=== PATIENT | male | born 1935 | race Caucasian/White ===

== ENCOUNTER 2016-07-16 19:40 | Inpatient (IN) | payer OTHER, MEDICARE ==
[~2016-07-16] VITALS: Ht 170.2 cm; Wt 89.8 kg
--- NOTE | 2016-07-16 19:47 | ED AMS/SEIZURE/WEAK/DIZZY ---
History of Present Illness General Chief Complaint: Fever Stated Complaint: FEVER, ALTERED MENTAL STATUS Source: patient Exam Limitations: no limitations Vital Signs & Intake/Output Vital Signs & Intake/Output Vital Signs Date Time Temp Pulse Resp B/P Pulse O2 O2 Flow FiO2 Ox Delivery Rate 07/16 2200 98 Room Air 07/16 2128 101.1 07/16 2041 101.1 68 20 147/68 94 Room Air 07/16 1955 100.5 79 18 138/68 96 Room Air Allergies Coded Allergies: No Known Allergies (07/16/16) Reconcile Medications Aspirin (Aspirin*) 81 MG TAB.CHEW 325 MG PO D HEART (Reported) Cholecalciferol (Vitamin D3) (Vitamin D) 1,000 UNIT TABLET 1 TAB PO BID SUPPLIMENT (Reported) Fish Oil/Borage/Flax/Om3,6,9#1 ([place] 3-6-9 1,200 MG Softgel) 1,200 MG CAPSULE 1,000 MG PO D SUPPLIMENMT (Reported) Gabapentin 100 MG CAPSULE 300 MG PO TID NEURO (Reported) Hydralazine HCl 10 MG TABLET 25 MG PO TID HTN (Reported) Lisinopril 10 MG TABLET 10 MG PO D HTN (Reported) Multivit-Min/FA/Lycopen/Lutein (Centrum Silver Tablet) 0.4 MG-300 MCG-250 MCG TABLET 1 TAB PO D SUPPLIMENT (Reported) Niacin (Niaspan) 1,000 MG TAB.ER.24H 1,000 MG PO D SUPPLIMENT (Reported) Primidone (Mysoline) 50 MG TABLET 50 MG PO 4 U (Reported) Simvastatin (Simvastatin*) 5 MG TABLET 20 MG PO D CHOL (Reported) Sitagliptin Phos/Metformin HCl (Janumet 50-500 MG Tablet) 50 MG-500 MG TABLET 50-500 MG PO BID DM (Reported) Tamsulosin HCl (Flomax) 0.4 MG CAP.ER.24H 0.4 MG PO D PROSTATE (Reported) Triage Nurses Notes Reviewed? yes Onset: Gradual Duration: day(s): Timing: recent history Injury Environment: home Severity: moderate Modifying Factors: Improves With: rest. Worsens With: other (pain with urination). Associated Symptoms: fever HPI: 80 yo gentleman from home, h/o cad, s/p cabg 1999 presents with fever to 102, decreased oral intake, increased fatigue for the past 1-2 days. The medics report that his family reported increasing confusion and fatigue. He notes slight discomfort when voiding as well as mild left sided abdominal pain. He notes no cough, phlegm, diarrhea, chills, dyspnea. Past History Travel History Traveled to [place] past 21 day No Medical History Any Pertinent Medical History? see below for history Cardiovascular: cad, htn Surgical History Surgical History: CABG Family History Hx Contributory? No Review of Systems Review of Systems Constitutional: Reports: no symptoms. EENTM: Reports: no symptoms. Respiratory: Reports: no symptoms. Cardiovascular: Reports: no symptoms. GI: Reports: no symptoms. Genitourinary: Reports: no symptoms. Musculoskeletal: Reports: no symptoms. Skin: Reports: no symptoms. Neurological/Psychological: Reports: no symptoms. Hematologic/Endocrine: Reports: no symptoms. Immunologic/Allergic: Reports: no symptoms. All Other Systems: Reviewed and Negative Physical Exam Physical Exam General Appearance: well developed/nourished, mild distress Head: atraumatic, normal appearance Eyes: Bilateral: normal appearance, PERRL, EOMI. Ears, Nose, Throat: normal pharynx, dry mucosa Neck: normal inspection, supple, full range of motion Respiratory: normal breath sounds, chest non-tender, no respiratory distress, quiet respiration, lungs clear Cardiovascular: regular rate/rhythm Gastrointestinal: normal bowel sounds, soft, left sided tenderness to palpation, no rebound, no guarding. mild suprapubic tenderness to palpation Rectal: normal rectal tone, heme negative stool, exquisitely tender and warm prostate to palpation. Back: normal inspection Extremities: normal range of motion Neurologic/Psych: no motor/sensory deficits, awake, alert, oriented x 3, calm, alert, answers all questions lucidly Skin: intact, normal color, warm/dry Core Measures ACS in differential dx? No CVA/TIA Diagnosis: No Severe Sepsis Present: No Septic Shock Present: No Progress Differential Diagnosis: uti, prostatitis, gastroenteritis, diverticulitis vs other. Plan of Care: Orders Procedure Date/time Status Nothing by Mouth 07/17 B Active Saline Lock 07/16 2157 Active Misc Message 07/16 2157 Active ED Holding Orders 07/16 2157 Active Vital Signs 07/16 2157 Active Code Status 07/16 2157 Active Admit to inpatient 07/16 2156 Active RAPID VIRAL INFLUENZA A 07/16 2037 Complete BLOOD CULTURE 07/16 1950 Active LACTIC ACID 07/16 1950 Complete CULTURE,URINE 07/16 1948 Active BLOOD CULTURE 07/16 1948 Active URINALYSIS 07/16 1948 Complete TROPONIN LEVEL 07/16 1948 Complete LIPASE 07/16 1948 Complete HEPATIC FUNCTION PANEL 07/16 1948 Complete CBC WITHOUT DIFFERENTIAL 07/16 1948 Complete BASIC METABOLIC PANEL 07/16 1948 Complete AMYLASE 07/16 1948 Complete EKG 07/16 1943 Active Laboratory Tests 07/16/162114: Urine Color YEL, Urine Clarity CLEAR, Urine pH 6.0, Ur Specific [place] >= 1.030 , Urine Protein 100 H, Urine Ketones NEG, Urine Nitrite NEG, Urine Bilirubin NEG, Urine Urobilinogen 0.2, Ur Leukocyte Esterase NEG, Ur Microscopic SEDIMENT EXAMINED, Urine RBC 25-50 H, Urine WBC 1-3 H, Ur Epithelial Cells FEW, Urine Hemoglobin MOD H, Urine Glucose NEG 07/16/161954: Lactic Acid 1.5 07/16/161954: Anion Gap 12, Estimated GFR > 60, BUN/Creatinine Ratio 23.8, Glucose 194 H, Calcium 9.0, Total Bilirubin 0.9, Direct Bilirubin 0.5 H, AST 23, ALT 37, Alkaline Phosphatase 87, Troponin I 0.01, Total Protein 7.4, Albumin 3.9, Amylase 42, Lipase 70, CBC w Diff NO MAN DIFF REQ, RBC 4.05 L, MCV 95.1 H, MCH 32.3 H, RDW 13.3, MPV 8.3, Gran % 82.0 H, Lymphocytes % 8.6 L, Monocytes % 9.2, Eosinophils % 0.1, Basophils % 0.1, Absolute Granulocytes 13.3 H, Absolute Lymphocytes 1.4, Absolute Monocytes 1.5 H, Absolute Eosinophils 0, Absolute Basophils 0, PUBS MCHC 34.0 Microbiology 07/16 2115 URINE ROUT: Urine Culture - RECD 07/16 2001 BLOOD: Blood Culture - RECD 07/16 1955 BLOOD: Blood Culture - RECD Diagnostic Imaging: Viewed by Me: Radiology Read, CT Scan. Discussed w/RAD: Radiology Read, CT Scan. Radiology Impression: abd/pelvic ct.... no acute process. CXR Impression: hypoinflation... full report below. Initial ED EKG: normal axis, normal intervals, normal p-waves, normal QRS complex, normal sinus rhythm, q waves III. no old to compare, no acute changes Comments: PATIENT: EMILY SCHAFFER SR PRESENT AGE: 80 PATIENT ACCOUNT NO: [id number] : 33 LOCATION: [facility] ORDERING PHYSICIAN: DANIEL LEON MD SERVICE DATE: 07/16/16 EXAM TYPE: CAT - CT ABD & PELVIS W/O IV CONTRAS EXAMINATION: CT ABDOMEN AND PELVIS WITHOUT CONTRAST CLINICAL INFORMATION: Left-sided abdominal pain and fever. COMPARISON: None. TECHNIQUE: Multidetector volumetric imaging was performed from the superior aspect of the liver through the pubic symphysis. Sagittal and coronal reformatted images were obtained on the technologist's workstation. DLP: 919 mGy-cm. FINDINGS: Limited evaluation of the solid abdominal viscera in the absence of intravenous contrast. LUNG BASES: The visualized lung bases are unremarkable. LIVER, GALLBLADDER, AND BILIARY TREE: The liver is normal in size, shape, and attenuation. No contour deforming hepatic lesion or biliary ductal dilatation is present. The gallbladder is unremarkable with no evidence of radiopaque gallstones, gallbladder wall thickening, or obvious pericholecystic inflammatory changes. PANCREAS: Unremarkable. SPLEEN: Unremarkable. ADRENAL GLANDS: Unremarkable. KIDNEYS AND URETERS: Evaluation of the bilateral kidneys and renal collecting systems is notable for nephrolithiasis of the bilateral kidneys. There is a punctate 1-2 mm nonobstructing stone within the lower pole of the right kidney. There are 3 mm nonobstructing stones within the mid and lower poles of the left kidney. No ureteral stones are identified and there is no appreciable hydroureteronephrosis of either kidney or renal collecting system. BLADDER: Unremarkable. GASTROINTESTINAL TRACT: Normal anatomic orientation of the stomach relative to the duodenum. Normal caliber of abdominal and pelvic bowel loops, without evidence of obstruction or ileus. No circumferential bowel wall thickening with surrounding inflammatory changes to suggest an underlying infectious or inflammatory enterocolitis. Normal-appearing appendix, with the tip of the appendix identified within the left hemipelvis. No organizing intra-abdominal fluid collections or free intraperitoneal air. Incidental note is made of a small hiatal hernia. ABDOMINAL WALL: Small fat-containing umbilical hernia. Small fat-containing bilateral inguinal hernias. LYMPH NODES: No significant abdominal or pelvic adenopathy. VASCULAR: Atherosclerosis of the abdominal aorta and its branching vessels. Normal course and caliber of the abdominal aorta and its branching vessels, without aneurysmal dilatation. Limited evaluation for vascular patency in the absence of intravenous contrast. PELVIC VISCERA: Unremarkable. OSSEOUS STRUCTURES: No acute osseous abnormality. [id number] degenerative changes of the imaged thoracolumbar spine. IMPRESSION: 1. Nephrolithiasis of the bilateral kidneys. No ureteral or bladder stones and no hydroureteronephrosis of either kidney or renal collecting system. 2. Normal-appearing appendix, with the tip of the appendix identified within the left hemipelvis. DICTATED BY: SAUNDRA ARAGON MD DATE/TIME DICTATED:07/16/162026 CLINICAL FIELD SPECIALIST:ADAMARIS DATE/TIME TRANSCRIBED:07/16/162026 CONFIDENTIAL, DO NOT COPY WITHOUT APPROPRIATE AUTHORIZATION. <Electronically signed in Other Vendor System> SIGNED BY: SAUNDRA ARAGON MD 07/16/162050 PATIENT: EMILY SCHAFFER SR PRESENT AGE: 80 PATIENT ACCOUNT NO: [id number] : 33 LOCATION: [facility] ORDERING PHYSICIAN: DANIEL LEON MD SERVICE DATE: 07/16/16 EXAM TYPE: RAD - XRY-PORTABLE CHEST XRAY EXAMINATION: XR PORTABLE CHEST CLINICAL INFORMATION: Fever. COMPARISON: None. TECHNIQUE: Portable view of the chest was obtained. FINDINGS: Single AP view of the chest demonstrates pulmonary hypoinflation. Hypoinflation and patient body habitus limit evaluation of the bilateral lungs. Nevertheless, there is no focal airspace consolidation and there are no pleural effusions or pneumothoraces. There are median sternotomy wires and evidence of prior CABG. Soft tissues appear unremarkable. No acute osseous abnormality. IMPRESSION: Pulmonary hypoinflation. Otherwise, no acute pulmonary process. DICTATED BY: SAUNDRA ARAGON MD DATE/TIME DICTATED:07/16/162046 CLINICAL FIELD SPECIALIST:HALL DATE/TIME TRANSCRIBED:07/16/162046 CONFIDENTIAL, DO NOT COPY WITHOUT APPROPRIATE AUTHORIZATION. <Electronically signed in Other Vendor System> SIGNED BY: SAUNDRA ARAGON MD 07/16/162055 Departure Departure Disposition: STILL A PATIENT Condition: Stable Clinical Impression Primary Impression: Prostatitis Secondary Impressions: Sepsis, Weakness Referrals: NEELA VALENTE MD (PCP/Family) Referred to [facility] as new patient No Departure Forms: Customer Survey General Discharge Information Admission Note Spoke With: LENA HANSON MD Documentation of Exam: Documentation of any treatments & extenuating circumstances including Concerns Regarding Discharge (functional status, medication knowledge or non-compliance, living conditions, etc.) that warrant an admission rather than observation: pt with weakness, decreased oral intake, who meets criteria for sepsis... most likely etiology is prostatitis given his exquisitely tender prostate to palpation. pt merits iv fluids, iv abx, and then mobilization with pt/ot. may require short term rehab.
[2016-07-16] MEDS ORDERED: GABAPENTIN100 M2 PO (19:57)
[2016-07-16] MEDS ORDERED: LISINOPRIL10 M1 PO (19:58)
[2016-07-16] MEDS ORDERED: FLOMAX0.4 M1 PO (19:59)
[2016-07-16] MEDS ORDERED: NIASPAN1000 M1 PO (20:01)
[2016-07-16] MEDS ORDERED: SIMVASTATIN5 M2 PO (20:02)
[2016-07-16] MEDS ORDERED: MYSOLINE50 M1 PO (20:04)
[2016-07-16] MEDS ORDERED: HYDRALAZINE HCL10 M1 PO (20:04)
[2016-07-16] MEDS ORDERED: JANUMET 50-5001 EACH PO (20:06)
[2016-07-16] MEDS ORDERED: ASPIRIN81 M4 PO (20:06)
[2016-07-16] MEDS ORDERED: VITAMIN D1000 UNIT PO (20:07)
[2016-07-16] MEDS ORDERED: OMEGA 3-6-9 11200 MG PO (20:08)
[2016-07-16] MEDS ORDERED: CENTRUM SILVER1 EAC3 PO (20:09)
[2016-07-16 20:14] LABS: ABSOLUTE BASOPHIL COUNT 0 /CUMM (0.0-0.2); ABSOLUTE EOSINOPHIL COUNT 0 /CUMM (0.0-0.7); ABSOLUTE GRANULOCYTE CT 13.3 /CUMM (1.4-6.5); ABSOLUTE LYMPH COUNT 1.4 /CUMM (1.2-3.4); ABSOLUTE MONOCYTE COUNT 1.5 /CUMM (0.10-0.60); BASOPHIL % 0.1 % (0.0-2.0); EOSINOPHIL % 0.1 % (0-5); HEMATOCRIT 38.5 % (42-52); MEAN CORPUSCULAR HGB 32.3 PG (27.0-31.0); MEAN CORPUSCULAR VOLUME 95.1 FL (80.0-94.0); MEAN PLATELET VOLUME 8.3 FL (7.4-10.4); PLATELET COUNT 158 /CUMM (130-400); RBC DISTRIBUTION WIDTH 13.3 % (11.5-14.5); RED BLOOD CELL CT 4.05 /CUMM (4.70-6.10); WHITE BLOOD CELL COUNT 16.3 /CUMM (4.8-10.8)
--- NOTE | 2016-07-16 20:51 | CT SCAN REPORT ---
EXAMINATION: CT ABDOMEN AND PELVIS WITHOUT CONTRAST CLINICAL INFORMATION: Left-sided abdominal pain and fever. COMPARISON: None. TECHNIQUE: Multidetector volumetric imaging was performed from the superior aspect of the liver through the pubic symphysis. Sagittal and coronal reformatted images were obtained on the technologist's workstation. DLP: 919 mGy-cm. FINDINGS: Limited evaluation of the solid abdominal viscera in the absence of intravenous contrast. LUNG BASES: The visualized lung bases are unremarkable. LIVER, GALLBLADDER, AND BILIARY TREE: The liver is normal in size, shape, and attenuation. No contour deforming hepatic lesion or biliary ductal dilatation is present. The gallbladder is unremarkable with no evidence of radiopaque gallstones, gallbladder wall thickening, or obvious pericholecystic inflammatory changes. PANCREAS: Unremarkable. SPLEEN: Unremarkable. ADRENAL GLANDS: Unremarkable. KIDNEYS AND URETERS: Evaluation of the bilateral kidneys and renal collecting systems is notable for nephrolithiasis of the bilateral kidneys. There is a punctate 1-2 mm nonobstructing stone within the lower pole of the right kidney. There are 3 mm nonobstructing stones within the mid and lower poles of the left kidney. No ureteral stones are identified and there is no appreciable hydroureteronephrosis of either kidney or renal collecting system. BLADDER: Unremarkable. GASTROINTESTINAL TRACT: Normal anatomic orientation of the stomach relative to the duodenum. Normal caliber of abdominal and pelvic bowel loops, without evidence of obstruction or ileus. No circumferential bowel wall thickening with surrounding inflammatory changes to suggest an underlying infectious or inflammatory enterocolitis. Normal-appearing appendix, with the tip of the appendix identified within the left hemipelvis. No organizing intra-abdominal fluid collections or free intraperitoneal air. Incidental note is made of a small hiatal hernia. ABDOMINAL WALL: Small fat-containing umbilical hernia. Small fat-containing bilateral inguinal hernias. LYMPH NODES: No significant abdominal or pelvic adenopathy. VASCULAR: Atherosclerosis of the abdominal aorta and its branching vessels. Normal course and caliber of the abdominal aorta and its branching vessels, without aneurysmal dilatation. Limited evaluation for vascular patency in the absence of intravenous contrast. PELVIC VISCERA: Unremarkable. OSSEOUS STRUCTURES: No acute osseous abnormality. [id number] degenerative changes of the imaged thoracolumbar spine. IMPRESSION: 1. Nephrolithiasis of the bilateral kidneys. No ureteral or bladder stones and no hydroureteronephrosis of either kidney or renal collecting system. 2. Normal-appearing appendix, with the tip of the appendix identified within the left hemipelvis.
--- NOTE | 2016-07-16 20:56 | RADIOLOGY REPORT ---
EXAMINATION: XR PORTABLE CHEST CLINICAL INFORMATION: Fever. COMPARISON: None. TECHNIQUE: Portable view of the chest was obtained. FINDINGS: Single AP view of the chest demonstrates pulmonary hypoinflation. Hypoinflation and patient body habitus limit evaluation of the bilateral lungs. Nevertheless, there is no focal airspace consolidation and there are no pleural effusions or pneumothoraces. There are median sternotomy wires and evidence of prior CABG. Soft tissues appear unremarkable. No acute osseous abnormality. IMPRESSION: Pulmonary hypoinflation. Otherwise, no acute pulmonary process.
[2016-07-16 23:40] VITALS: BP 133/52
--- NOTE | 2016-07-16 23:44 | History & Physical ---
ERICA LYNN,[facility] 07/16/16 5130: General Information and HPI MD Statement: I have seen and personally examined EMILY SCHAFFER Adam SR and documented this H&P. The patient is a 80 year old M who presented with a patient stated chief complaint of [fever, AMS and weakness]. Source of Information: patient, family Exam Limitations: no limitations History of Present Illness: 80/M with PMH of 5 times CABG, spinal stenosis, BPH, HTN, T2DM, GERD, kidney stones who presented to the ED complaining of fever, altered mental status, and generalize weakness for 1 day Since yesterday patient was spiking fever, according to his son highest temperature at home was 103.2. Patient had an AMS where he was seeing a school bus in their backyard. He also had a poor appetite and generalized weakness where his son needed to support him while walking him from the car to the house. Patient's son reported that 2 years ago patient had exact same symptom after which she developed sepsis and stayed in [facility] for 2 months. Patient's son remember it was because of UTI. He is not sure if he was in the ICU. He was in isolation but patient doesn't remember why. Patient reported intermittent, nonradiating, 7/10 left lower quadrant pain that started 2 months ago. Patient states the pain once every 4-5 days. No alleviating or relieving factors. Patient reported chronic constipation and denies nausea, vomiting, dysuria, or diarrhea. He also reported substernal burning sensation, he had a history of GERD, he denies palpitation, shortness breath, or cough. Allergies/Medications Allergies: Coded Allergies: No Known Allergies (07/16/16) Home Med list Aspirin (Aspirin*) 81 MG TAB.CHEW 325 MG PO D HEART (Reported) Cholecalciferol (Vitamin D3) (Vitamin D) 1,000 UNIT TABLET 1 TAB PO BID SUPPLIMENT (Reported) Fish Oil/Borage/Flax/Om3,6,9#1 ([place] 3-6-9 1,200 MG Softgel) 1,200 MG CAPSULE 1,000 MG PO D SUPPLIMENMT (Reported) Gabapentin 100 MG CAPSULE 300 MG PO TID NEURO (Reported) Hydralazine HCl 10 MG TABLET 25 MG PO TID HTN (Reported) Lisinopril 10 MG TABLET 10 MG PO D HTN (Reported) Multivit-Min/FA/Lycopen/Lutein (Centrum Silver Tablet) 0.4 MG-300 MCG-250 MCG TABLET 1 TAB PO D SUPPLIMENT (Reported) Niacin (Niaspan) 1,000 MG TAB.ER.24H 1,000 MG PO D SUPPLIMENT (Reported) Primidone (Mysoline) 50 MG TABLET 50 MG PO 4 U (Reported) Simvastatin (Simvastatin*) 5 MG TABLET 20 MG PO D CHOL (Reported) Sitagliptin Phos/Metformin HCl (Janumet 50-500 MG Tablet) 50 MG-500 MG TABLET 50-500 MG PO BID DM (Reported) Tamsulosin HCl (Flomax) 0.4 MG CAP.ER.24H 0.4 MG PO D PROSTATE (Reported) Past History Travel History Traveled to [place] past 21 day No Medical History Neurological: Parkinson's disease, ESSENTIAL TREMORS EENT: NONE Cardiovascular: cad, htn Respiratory: NONE Gastrointestinal: NONE Hepatic: NONE Renal: NONE Musculoskeletal: NONE Psychiatric: NONE Endocrine: diabetes Blood Disorders: NONE Cancer(s): NONE Surgical History Surgical History: CABG Review of Systems Review of Systems Constitutional: Reports: weakness. Denies: chills, fever. Cardiovascular: Reports: peripheral edema. Denies: chest pain, orthopena, palpitations, syncope. Respiratory: Reports: cough (basline). Denies: hemoptysis, orthopnea, short of breath, wheezing. GI: Reports: constipation. Denies: bloating, diarrhea, distention, nausea, vomiting. Genitourinary: Denies: dysuria, frequency. Musculoskeletal: Reports: back pain. Skin: Denies: rash. Exam & Diagnostic Data Last 24 Hrs of Vital Signs/I&O Vital Signs Date Time Temp Pulse Resp B/P Pulse O2 O2 Flow FiO2 Ox Delivery Rate 07/17 0206 73 133/52 07/16 2340 98.3 73 20 133/52 94 Room Air 07/16 2200 98 Room Air 07/168 101.1 07/16 2041 101.1 68 20 147/68 94 Room Air 07/16 1955 100.5 79 18 138/68 96 Room Air Intake & Output 07/17 0800 07/17 0000 07/16 1600 Intake Total Output Total Balance Patient 89.811 kg Weight Physical Exam General Appearance Alert, Oriented X3, Cooperative, No Acute Distress Skin No Rashes HEENT Atraumatic, PERRLA, EOMI, Mucous Membr. moist/pink Cardiovascular Regular Rate, Normal S1, Normal S2, No Murmurs Lungs Clear to Auscultation, Normal Air Movement Abdomen Soft, No Tenderness (LLQ tenderness), abd distention Neurological Normal Speech, Strength at 5/5 X4 Ext, Sensation Intact Extremities +1 B/L edema with rt> lt, right leg feels warmer than left. Last 24 Hrs of Labs/Alok: Laboratory Tests 07/16/162249: Lactic Acid Cancelled 07/16/162114: Urine Color YEL, Urine Clarity CLEAR, Urine pH 6.0, Ur Specific [place] >= 1.030 , Urine Protein 100 H, Urine Ketones NEG, Urine Nitrite NEG, Urine Bilirubin NEG, Urine Urobilinogen 0.2, Ur Leukocyte Esterase NEG, Ur Microscopic SEDIMENT EXAMINED, Urine RBC 25-50 H, Urine WBC 1-3 H, Ur Epithelial Cells FEW, Urine Hemoglobin MOD H, Urine Glucose NEG 07/16/161954: Lactic Acid 1.5 07/16/161954: Anion Gap 12, Estimated GFR > 60, BUN/Creatinine Ratio 23.8, Glucose 194 H, Calcium 9.0, Total Bilirubin 0.9, Direct Bilirubin 0.5 H, AST 23, ALT 37, Alkaline Phosphatase 87, Troponin I 0.01, Total Protein 7.4, Albumin 3.9, Amylase 42, Lipase 70, CBC w Diff NO MAN DIFF REQ, RBC 4.05 L, MCV 95.1 H, MCH 32.3 H, RDW 13.3, MPV 8.3, Gran % 82.0 H, Lymphocytes % 8.6 L, Monocytes % 9.2, Eosinophils % 0.1, Basophils % 0.1, Absolute Granulocytes 13.3 H, Absolute Lymphocytes 1.4, Absolute Monocytes 1.5 H, Absolute Eosinophils 0, Absolute Basophils 0, PUBS MCHC 34.0 Microbiology 07/16 2115 URINE ROUT: Urine Culture - RECD 07/16 2001 BLOOD: Blood Culture - RECD 07/16 1955 BLOOD: Blood Culture - RECD Assessment/Plan Assessment: #Sepsis Patient has fever, leukocytosis and prostatitis or right leg cellulitis would be the source of infection. Patient had tender prostate on rectal exam. patient right leg is more swollen, warm, tender than left leg. CAT scan of pelvis and abdomen negative for any acute pathology. Denies urinary symptoms with normal UA. No acute pulmonary process on chest x-ray. --- Prostatitis * We will repeat UA pending * We ordered urine culture and blood culture * We Will hydrate with NS as 100 mL an hour * Patient will receive ceftriaxone. 1 g IV daily, will change according to the culture results * Continue Tylenol when necessary for fever * ID consult in a.m... --- Right leg cellulitis * X-ray of the foot and ankle negative for acute osteomyelitis/soft tissue infection * We will order ultrasound of the foot to rule out DVT * Blood cultures pending * We will consult ID in a.m. #T2DM * Accu-Cheks * NovoLog sliding scale * Diabetic diet * We'll hold oral hypoglycemic agents #HTN * Continue hydralazine * Continue lisinopril #GERD * We will give omeprazole 20 mg daily #Back pain 2/2 Spinal stenosis * Continue gabapentin * Continue oxycodone Diet Diabetic diet DVT prophylaxis Lovenox SC CODE STATUS Full code Mild pain pathway As Ranked By This Provider Problem List: 1. Prostatitis 2. Sepsis 3. Weakness Core Measures/Miscellaneous Acute Coronary Syndrome ACS Diagnosis: No Cerebrovascular Accident CVA/TIA Diagnosis: No Congestive Heart Failure CHF Diagnosis: No Venous Thromboembolism VTE Risk Factors: Acute medical illness, Age > 40 VTE Prophylaxis Ordered Inpt: Mechanical (ALPS/TEDS) No Mech VTE prophylaxis d/t: No contraindications No VTE Pharm Prophylaxis d/t: No contraindications VTE Diagnosis: No VTE Type: NONE VTE Confirmed by (Test): NONE Severe Sepsis Severe Sepsis Present: No Septic Shock Septic Shock Present: No Miscellaneous Documentation Attending Case Discussed With: LENA HANSON MD Primary Care Physician: NEELA VALENTE MD. Patient sees these Specialists NEELA VALENTE MD Level of Patient Care: General Medicine CHLOE CEBALLOS 07/16/16 2352: Resident Review Statement Resident Statement: examined this patient, discussed with public health internship Other Findings: Patient is a 80-year-old male with past medical history of CABG, essential, tremor, BPH, severe spinal stenosis, hypertension, diabetes who was brought in from home by his son with a chief complaint of weakness, altered mentation, fever and chills. Son states that today his father seemed a little altered after dinner and and was actively hallucinating. He had fever and rigors. Temperature 3 was 100.3, 102.3, 103.2 He was very weak on his feet and was unable to walk from the car to his apartment after dinner. Son states that for the past few days he has been very weak, eating and drinking poorly. Patient complains of left lower quadrant pain that has present since the last 2 months, intermittent, 7 /10 in intensity when first with no radiation. Denies any dysuria, or increased frequency of urination, diarrhea. He has constipation secondary to being on pain meds for chronic back pain. Complains of some chest discomfort in the center of the chest but no palpitations, shortness of breath, nausea, vomiting. Patient was receiving health care at [place] for the past 20 years and has been in [place] for one year. 2 years back he was admitted for septic shock at [facility]. He required ICU admission but no intubation/ pressors. Family is unclear what the reason of the shock but believes it was urological. Also also states he was in isolation. Vitals in the ED temperature 100 and 0.5, pulse 79, respiration 18, blood pressure 138/60, saturating 96% on room air. Pertinent labs showed a white count of 16.3, H&H of 13.1 /38.3, sodium 134, normal lactic acid, troponins negative. UA: Clear urine, 25-50 RBC, 1-3 WBC, Urine hemoglobin high CT abdomen and pelvis: No acute pathology. Enlarged prostate with no signs of inflammation. Nephrolithiasis of the bilateral kidneys. No hydronephrosis of either kidney. Physical exam: Gen.: Alert and oriented 3, no acute distress, sternotomy scar HEENT: PERRLA, EOMI Chest: S1 and S2 heard no murmurs rubs or gallops Respiratory: Clear to auscultation Abdomen: Markedly distended, tympanitic, lower left quadrant tenderness, CVA tenderness positive Back examination: Tenderness in the lumbar region Genitourinary: Tender and hard prostate on ARRON. Tenderness present over the scrotal area. Extremities: 1+ bilateral pedal edema. Right foot swollen, hot and tender. Some erythema seen on the right foot. Plan: 1. Sepsis(fever, leukocytosis) secondary to questionable prostatitis versus right foot cellulitis.Exquisitely tender prostate on digital rectal examination.CAT scan of pelvis and abdomen negative for any acute pathology. No urinary symptoms. Normal lactic acid. UA clean. No discharge. Hot tender right foot, swelling more than the left. -[facility] -Repeat UA pending -Bolused 1 L in the ED. We will continue maintenance of normal saline at 100 mL an hour 1 back. -Patient received 1 dose of IV ceftriaxone in ED .We'll continue the same pending culture and sensitivities. -Blood cultures/urine culture -Continue Tylenol for fever -ID consult in a.m. -Consider urology consult.. 2. Right foot cellulitis? -Right foot movement and tender compared to the left -X-ray of the foot and ankle negative for acute osteomyelitis/soft tissue infection -We will order ultrasound of the foot to rule out DVT -Blood cultures pending 2. Diabetes mellitus -4 times a day Accu-Cheks -NovoLog sliding scale -Diabetic diet -We'll hold oral hypoglycemic agents 3. Hypertension -We'll continue hydralazine and lisinopril with holding parameters 4. Back pain -Continue gabapentin and oxycodone Diabetic diet Full code Mild pain pathway LENA HANSON 07/17/16 0550: Attending MD Review Statement Attending Statement Attending MD Statement: examined this patient, discuss w/resident/PA/[employer]AIN MANAGER, agreed w/resident/PA/[employer] FOUNTAIN MANAGER, reviewed EMR data (avail), reviewed images, amended to note Attending Assessment/Plan: CC : fever PMHx : CAD status post CABG, back pain secondary to spinal stenosis, BPH, HTN, DM Patient was brought in by his son for high-grade fever at home. Patient's fever at home yesterday was 103.2 and patient was pretty confused with some hallucinations. Patient also complains of left lower quadrant abdominal pain since 2 weeks at the time of presentation currently resolved. Patient had headache since 2 days but now better. He denies any urinary complaints, any chest pain, perineal pain, chills, cough, shortness of breath, leg swellings, leg rashes, any trauma, any sick contacts. Patient says that he was admitted in ICU in [place] few years back for similar complaints where he had urinary infection which went up to kidneys, he was not intubated, but he was delirious. Vitals: T max 101.1, HR in 70s, respiratory rate in 20s, blood pressure stable, saturating well on room air. On exam: A O 3, no apparent distress, mildly anxious, comfortably lying on bed. RS: Clear air entry bilaterally present, CVS : S1-S2, RRR. Abdomen: Soft, NT, ND, bowel sounds present : Tenderness in the left scrotal area without any swelling, warmth, redness or increased temperature. Patient had some blood around penis ( probably after Lopze catheter trauma) skin did not show any erythema, abscesses, rashes but right lower extremity is more warm to touch than left lower extremity, painful but now erythema, crepitus or discharge. No focal neurological deficit, no nuchal rigidity. Labs: WBC 16.3, with neutrophils 82%, lactic acid 1.5, lipase 70, elevated glucose otherwise BMP, LFT unremarkable. UA shows 25-50 RBCs otherwise leukocyte esteraseand nitrite negative. CT abdomen and pelvis: Nephrolithiasis of the bilateral kidneys. No ureteral or bladder stones and no hydroureteronephrosis of either kidney or renal collecting system. Normal-appearing appendix, with the tip of the appendix identified within the left hemipelvis. Chest x-ray: Pulmonary hypoinflation otherwise unremarkable. Left Ankle and foot x-ray: No evidence of osteomyelitis A and P #1 fever: Suspected sepsis : With the leukocytosis, unclear source of infection. Patient had tender and warm prostate on Rectal examination done by ER physician. CT pelvis does not mention any stranding around prosthetic area. UA does not show signs of UTI, still prostatitis cannot be denied. Send urine culture, blood culture, check a rapid flu test if not done. Also patient is mildly warm right lower extremity but no obvious evident cellulitis at this time. He has some left-sided scrotal tenderness for which please obtain ultrasound. Considering the diagnosis of prostatitis continue ceftriaxone for now. Patient had a streak of persistent organisms in the past according to him, will follow cultures. Continue gentle hydration, trend lactic acid, when necessary Tylenol for pain. #2 diabetes: Hold oral hypoglycemic, continue sliding scale insulin short- acting. #3 HTN, BPH, CAD: Continue rest of his home medications. Adequate pain control with pain pathway, Lovenox for DVT prophylaxis
--- NOTE | 2016-07-17 00:02 | RADIOLOGY REPORT ---
EXAMINATION: XR ANKLE, LEFT XR FOOT, LEFT CLINICAL INFORMATION: Swollen left ankle. Hot. Rule out infection. COMPARISON: None TECHNIQUE: AP and lateral views of the left ankle and AP and lateral views of the left foot. FINDINGS: LEFT ANKLE: Soft tissues are swollen in the left ankle. No fracture or malalignment. Marked calcific atherosclerosis is present. Large enthesopathic spurs are present at the calcaneus. No areas of acute osteolysis are identified to suggest osteomyelitis. No subcutaneous gas. LEFT FOOT: Marked calcific atherosclerosis is present in the foot. There is mild generalized soft tissue swelling. No fracture or malalignment. No areas of focal osteolysis is identified to suggest acute osteomyelitis. There is mild multifocal degenerative arthritis in the MTP and interphalangeal joints. These bony spurs are present at the calcaneus. No subcutaneous gas. IMPRESSION: Soft tissue swelling in the ankle and foot with marked calcific atherosclerosis. No radiographic findings of acute osteomyelitis. 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
--- NOTE | 2016-07-17 05:44 | Admission Certification ---
Admission Certification Certification Statement - As attending physician, I certify that at the time of - admission, based on clinical presentation, severity of - symptoms, need for further diagnostic testing and - therapeutic interventions, and risk of adverse outcomes - without in-hospital treatment, in my clinical assessment, - this patient requires an acute hospital stay for a minimum - of two nights or longer. I have also considered psychsocial - factors such as support system, advanced age, financial - issues, cognitive issues, and failed out-patient treatments, - past re-admission history, safety of patient, and lack of - compliance as applicable. Specific rationale supporting this admission is: Fever, suspected prostatitis
[2016-07-17 08:22] LABS: ABSOLUTE BASOPHIL COUNT 0 /CUMM (0.0-0.2); ABSOLUTE EOSINOPHIL COUNT 0 /CUMM (0.0-0.7); ABSOLUTE GRANULOCYTE CT 15.1 /CUMM (1.4-6.5); ABSOLUTE LYMPH COUNT 1.2 /CUMM (1.2-3.4); ABSOLUTE MONOCYTE COUNT 1.7 /CUMM (0.10-0.60); BASOPHIL % 0.1 % (0.0-2.0); EOSINOPHIL % 0 % (0-5); GRANULOCYTE % 83.8 % (42.2-75.2); HEMATOCRIT 34.7 % (42-52); MEAN CORPUSCULAR HGB 32.5 PG (27.0-31.0); MEAN CORPUSCULAR HGB CONC 34.1 G/DL (33.0-37.0); MEAN CORPUSCULAR VOLUME 95.2 FL (80.0-94.0); MEAN PLATELET VOLUME 9.2 FL (7.4-10.4); PLATELET COUNT 134 /CUMM (130-400); RBC DISTRIBUTION WIDTH 13.5 % (11.5-14.5); RED BLOOD CELL CT 3.65 /CUMM (4.70-6.10)
[2016-07-17 08:43] VITALS: BP 110/62
--- NOTE | 2016-07-17 11:45 | PN- Att Addend ---
Attending Addendum Attending Brief Note Patient seen and examined. Lying comfortably in bed not in acute distress. Abdomen demonstrate. Conversing appropriately. He denies any dysuria prior to admission. He reports discomfort only after fully catheter was placed in the emergency room. He does admit to history of hesitancy reported that been going on for a while prior to admission. Denies nausea vomiting. Denies abdominal pain. Denies lower extremity pain. Vital Signs Date Time Temp Pulse Resp B/P Pulse O2 O2 Flow FiO2 Ox Delivery Rate 07/17 1045 100.3 07/17 1043 72 110/62 07/17 1043 72 110/62 07/17 1043 72 110/62 07/17 0843 99.9 72 20 110/62 93 Room Air 07/17 0632 100.1 07/17 0206 73 133/52 07/16 2340 98.3 73 20 133/52 94 Room Air 07/16 2200 98 Room Air 07/16 2128 101.1 07/16 2041 101.1 68 20 147/68 94 Room Air 07/16 1955 100.5 79 18 138/68 96 Room Air Gen. appearance: Not in acute distress Heart: S1-S2 regular Lungs: Good entry bilaterally, clear to auscultation Abdomen: Soft, nontender with normal bowel sounds Scrotum: No swelling or erythema. Nontender to touch. Extremities: No pedal edema. Skin: Intact with no rashes. Laboratory Tests 07/17/16 0633: Anion Gap 12, Estimated GFR > 60, BUN/Creatinine Ratio 24.3, CBC w Diff NO MAN DIFF REQ, RBC 3.65 L, MCV 95.2 H, MCH 32.5 H, RDW 13.5, MPV 9.2, Gran % 83.8 H, Lymphocytes % 6.7 L, Monocytes % 9.4 H, Eosinophils % 0, Basophils % 0.1, Absolute Granulocytes 15.1 H, Absolute Lymphocytes 1.2, Absolute Monocytes 1.7 H, Absolute Eosinophils 0, Absolute Basophils 0, PUBS MCHC 34.1 07/16/162249: Lactic Acid Cancelled 07/16/162114: Urine Color YEL, Urine Clarity CLEAR, Urine pH 6.0, Ur Specific [place] >= 1.030 , Urine Protein 100 H, Urine Ketones NEG, Urine Nitrite NEG, Urine Bilirubin NEG, Urine Urobilinogen 0.2, Ur Leukocyte Esterase NEG, Ur Microscopic SEDIMENT EXAMINED, Urine RBC 25-50 H, Urine WBC 1-3 H, Ur Epithelial Cells FEW, Urine Hemoglobin MOD H, Urine Glucose NEG 07/16/161954: Lactic Acid 1.5 07/16/161954: Anion Gap 12, Estimated GFR > 60, BUN/Creatinine Ratio 23.8, Glucose 194 H, Calcium 9.0, Total Bilirubin 0.9, Direct Bilirubin 0.5 H, AST 23, ALT 37, Alkaline Phosphatase 87, Troponin I 0.01, Total Protein 7.4, Albumin 3.9, Amylase 42, Lipase 70, CBC w Diff NO MAN DIFF REQ, RBC 4.05 L, MCV 95.1 H, MCH 32.3 H, RDW 13.3, MPV 8.3, Gran % 82.0 H, Lymphocytes % 8.6 L, Monocytes % 9.2, Eosinophils % 0.1, Basophils % 0.1, Absolute Granulocytes 13.3 H, Absolute Lymphocytes 1.4, Absolute Monocytes 1.5 H, Absolute Eosinophils 0, Absolute Basophils 0, PUBS MCHC 34.0 Microbiology 07/16 2115 URINE ROUT: Urine Culture - RES ENTEROCOCCUS 07/16 2001 BLOOD: Blood Culture - WKST 07/16 1955 BLOOD: Blood Culture - RECD Problems: 1. Sepsis; appears to be secondary to urinary tract infection versus prostatitis. Currently growing enterococcus in the urine. 2. BPH 3. Hypertension 4. Chronic pain syndrome Plan: -Continue antibiotic therapy with Rocephin. Follow-up urine culture sensitivities. Follow-up blood cultures. -No evidence of gastrointestinal infection at present. LFTs are within normal limits. -Recommend discontinuation of with catheter tomorrow and attempted a voiding trial. Continue tamsulosin. -Continue current antihypertensive regimen. -Continue patient on his home pain regimen. -Mobilize patient as tolerated.
[2016-07-17 15:57] VITALS: BP 122/62
[2016-07-17 23:57] VITALS: BP 128/62
[2016-07-18 08:03] LABS: ABSOLUTE BASOPHIL COUNT 0 /CUMM (0.0-0.2); ABSOLUTE EOSINOPHIL COUNT 0 /CUMM (0.0-0.7); ABSOLUTE GRANULOCYTE CT 15.6 /CUMM (1.4-6.5); ABSOLUTE LYMPH COUNT 1.5 /CUMM (1.2-3.4); ABSOLUTE MONOCYTE COUNT 1.8 /CUMM (0.10-0.60); BASOPHIL % 0.1 % (0.0-2.0); EOSINOPHIL % 0.1 % (0-5); GRANULOCYTE % 82.7 % (42.2-75.2); HEMATOCRIT 33.3 % (42-52); MEAN CORPUSCULAR HGB 32.8 PG (27.0-31.0); MEAN CORPUSCULAR HGB CONC 34.3 G/DL (33.0-37.0); MEAN CORPUSCULAR VOLUME 95.6 FL (80.0-94.0); MEAN PLATELET VOLUME 8.6 FL (7.4-10.4); PLATELET COUNT 134 /CUMM (130-400); RBC DISTRIBUTION WIDTH 13.4 % (11.5-14.5); RED BLOOD CELL CT 3.48 /CUMM (4.70-6.10); WHITE BLOOD CELL COUNT 18.9 /CUMM (4.8-10.8)
[2016-07-18 08:17] VITALS: BP 134/64
--- NOTE | 2016-07-18 11:52 | ULTRASOUND REPORT ---
EXAMINATION: US TRIPLEX LOWER EXTREMITY, RIGHT CLINICAL INFORMATION: Right leg swelling COMPARISON: None. TECHNIQUE: Color-flow triplex imaging with spectral analysis and compression Doppler were performed on the right lower extremity. FINDINGS: Respiratory variation, normal compression and augmented flow are noted throughout the lower extremity. The visualized common femoral vein, superficial femoral vein, profunda femoral vein, popliteal vein and mid calf peroneal and posterior tibial venous segments show no evidence of deep venous thrombosis. There is no Haas's cyst. IMPRESSION: Normal triplex scan without evidence of deep venous thrombosis involving the right lower extremity.
--- NOTE | 2016-07-18 13:37 | PN- Att Addend ---
Attending Addendum Attending Brief Note Patient seen and examined. Resting comfortably not in acute distress. No issues overnight reported by nursing staff. He did have low-grade fever of 100.3 yesterday. His white cell count remains elevated. He however does not report any worsening symptoms. Denies chest or shortness of breath. Denies nausea vomiting. Denies abdominal pain. There was concern of worsening cellulitis on admission however he has no erythema or swelling on his legs. He denies any lower extremity pain. Vital Signs Date Time Temp Pulse Resp B/P Pulse O2 O2 Flow FiO2 Ox Delivery Rate 07/18 837 74 134/70 07/18 0838 74 134/70 07/18 0837 74 134/70 07/18 0817 99.3 73 20 134/64 92 07/17 2357 99.0 72 22 128/62 93 Room Air 07/17 2111 88 130/82 07/17 1557 97.9 87 21 122/62 95 Gen. appearance: Obese, not in acute distress Heart: S1-S2 regular Lungs: Good entry bilaterally, clear to auscultation Abdomen: Soft, nontender with normal bowel sounds Extremities: No pedal edema Skin: Intact with no rashes Laboratory Tests 07/18/16 0727: CBC w Diff NO MAN DIFF REQ, RBC 3.48 L, MCV 95.6 H, MCH 32.8 H, RDW 13.4, MPV 8.6, Gran % 82.7 H, Lymphocytes % 7.8 L, Monocytes % 9.3, Eosinophils % 0.1, Basophils % 0.1, Absolute Granulocytes 15.6 H, Absolute Lymphocytes 1.5, Absolute Monocytes 1.8 H, Absolute Eosinophils 0, Absolute Basophils 0, PUBS MCHC 34.3 Dopplers show no evidence of DVT. Problems: 1. Sepsis; appears to be secondary to urinary tract infection versus prostatitis. Currently growing enterococcus in the urine. 2. BPH 3. Hypertension 4. Chronic pain syndrome Plan: -Patient is being penicillin sensitive enterococcus in the urine. Antibiotic therapy was changed to Unasyn. -Repeat CBC in a.m. -Discontinue Lopez catheter. Voiding trial later on in the day. -Mobilize patient as tolerated.
--- NOTE | 2016-07-18 15:53 | PN- Housestaff ---
Subjective Follow-up For: enterococcus UTI Subjective: Saw patient at bedside this a.m. He said he felt much better. However his tremors were increasing of note, he had been refusing his primidone during the day. I educated him about the consequences of acutely stopping a barbiturate. He stated he would continue taking his doses yesterday. Patient had MAXIMUM TEMPERATURE 100.8. No acute overnight events. Review of Systems Constitutional: Denies: chills, malaise, weakness. EENTM: Reports: no symptoms. Cardiovascular: Denies: chest pain, palpitations. Gastrointestinal: Denies: abdominal pain, constipation. Genitourinary: Reports: pain. Musculoskeletal: Reports: no symptoms. Skin: Reports: no symptoms. Objective Last 24 Hrs of Vital Signs/I&O Vital Signs Date Time Temp Pulse Resp B/P Pulse O2 O2 Flow FiO2 Ox Delivery Rate 07/18 0838 74 134/70 07/18 0838 74 134/70 07/18 0837 74 134/70 07/18 0817 99.3 73 20 134/64 92 07/17 2357 99.0 72 22 128/62 93 Room Air 07/17 2111 88 130/82 07/17 1557 97.9 87 21 122/62 95 Intake & Output 07/18 1600 07/18 0800 07/18 0000 Intake Total 1360 540 Output Total 675 400 Balance 685 140 Intake, IV 1000 300 Intake, Oral 360 240 Output, Urine 675 400 Physical Exam General Appearance: Alert, Oriented X3, Cooperative Skin: No Rashes, No Breakdown, No Significant Lesion HEENT: Atraumatic, PERRLA, EOMI Neck: Supple Cardiovascular: Regular Rate, Normal S1, Normal S2 Lungs: Clear to Auscultation Abdomen: Soft, No Tenderness Neurological: Normal Speech Extremities: No Cyanosis, No Edema, NO SIGN OF ERYTHEMA OR CELLULITIS ON LE. Evidence of chronic venous stasis changes. Current Medications: Current Medications Sig/Gilmar Start time Last Medication Dose Route Stop Time Status Admin Acetaminophen 500 MG Q6P PRN 07/16 2330 AC 07/17 PO 1045 Ampicillin Sodium/ 1,500 MG Q6H 07/17 2100 AC 07/18 Sulbactam Sodium IV 1437 Sodium Chloride 100 ML Ampicillin Sodium/ 1,500 MG Q6 07/17 1904 DC 07/17 Sulbactam Sodium IV 2051 Sodium Chloride 100 ML Aspirin 325 MG DAILY 07/17 1000 AC 07/18 PO 0838 Atorvastatin Calcium 20 MG 1700 07/17 1700 DC PO Atorvastatin Calcium 20 MG 1700 07/17 1700 AC 07/17 PO 1708 Ceftriaxone Sodium 1,000 MG 2200 07/17 2200 CAN IV Cholecalciferol 1,000 IU BID 07/17 1000 AC 07/18 PO 0838 Enoxaparin Sodium 40 MG DAILY 07/17 1000 AC 07/18 SC 0839 Gabapentin 300 MG TID 07/17 1000 AC 07/18 PO 0837 Hydralazine HCl 25 MG TID 07/17 0005 AC 07/18 PO 0838 Insulin Aspart 0 TIDAC 07/17 0800 AC 07/18 SC 1320 Lisinopril 10 MG DAILY 07/17 1000 AC 07/18 PO 0837 Melatonin 5 MG AT BEDTIME 07/17 2200 AC 07/17 PO 2111 Multivitamins 1 TAB DAILY 07/17 1000 AC 07/18 PO 0838 Niacin 1,000 MG AT BEDTIME 07/17 2200 AC 07/17 PO 2112 Omeprazole 20 MG DAILY AC 07/17 0700 AC 07/18 PO 0550 Patient Medication 1 ED .STK-MED ONE 07/18 1340 DC Teaching ED 07/18 1341 Primidone 50 MG Q6 07/17 0600 AC 07/18 PO 1321 Sodium Chloride 1,000 ML Q10H 07/16 2300 AC 07/18 IV 1440 Tamsulosin HCl 0.4 MG DAILY 07/17 1000 AC 07/18 PO 0838 Last 24 Hrs of Lab/Alok Results Last 24 Hrs of Labs/Mics: Laboratory Tests 07/18/1627: CBC w Diff NO MAN DIFF REQ, RBC 3.48 L, MCV 95.6 H, MCH 32.8 H, RDW 13.4, MPV 8.6, Gran % 82.7 H, Lymphocytes % 7.8 L, Monocytes % 9.3, Eosinophils % 0.1, Basophils % 0.1, Absolute Granulocytes 15.6 H, Absolute Lymphocytes 1.5, Absolute Monocytes 1.8 H, Absolute Eosinophils 0, Absolute Basophils 0, PUBS MCHC 34.3 Assessment/Plan Assessment: This is an 80-year-old male with past medical history of spinal stenosis, BPH, hypertension, diabetes, GERD, nephrolithiasis, CABG 5, presented with chief complaint of fever, AMS, weakness, and dysuria. Upon workup in ED he was found to have white count of 16, WN and MAXIMUM TEMPERATURE 101.1. Given concern for sepsis of urological origin he was admitted to medicine floor for further workup. CT IMPRESSION: 1. Nephrolithiasis of the bilateral kidneys. No ureteral or bladder stones and no hydroureteronephrosis of either kidney or renal collecting system. 2. Normal-appearing appendix, with the tip of the appendix identified within the left hemipelvis. Foot x-ray IMPRESSION: Soft tissue swelling in the ankle and foot with marked calcific atherosclerosis. No radiographic findings of acute osteomyelitis. 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 Venous Doppler IMPRESSION: Normal triplex scan without evidence of deep venous thrombosis involving the right lower extremity. PLAN Sepsis: During admission pt had fever, and white count, with possible sources being right lower extremity cellulitis versus prostatitis versus UTI. In ED patient had tender prostate on rectal exam and his RLE was noted to be more swollen, warm, tender than left leg. He states that he has a painful burning sensation upon urination which is new for him. UA shows 25-50 urine red blood cell, 1-3 white blood cell, moderate hemoglobin. Urine negative for nitrite and leukocyte esterase. Urine culture now growing 40,000 CFU of enterococcus susceptible to ampicillin, Macrobid, and vancomycin. Negative CXR. Negative ultrasound of the leg. Despite negative leukocyte esterase or nitrite, cannot rule out prostatitis as he has perineal pain, fever, and tenderness on prostate exam. We will continue treatment with antibiotics. Unsure of duration of treatment for prostatitis and significance of only 40,000 CFU's in urine. * F/U urine culture and blood culture * [id number] NEED IN AM * Patient was initially on ceftriaxone, but subsequently changed on 07/17/2016 to Unasyn as he grew enterococcus in his urine. * Continue Tylenol when necessary for fever * F/U X-ray of the foot and ankle negative for acute osteomyelitis/soft tissue infection * Consider voiding trial in a.m. Tremor: Patient has questionable history of Parkinson's disease. Per family, he was on primidone for years but during evaluation at [facility] Parkinson's clinic he was determined to not have Parkinson's and medication was discontinued. At that time patient was seen by Dr. Antonio Woodall. However, in the last month he was seen by Dr. Marin in [place] who restarted his primidone at a higher dose. Patient's family noted a worsening of tremor in the past 2 weeks as such, patient is attempting to discontinue medication on his own. He refused morning doses of primidone this AM. I visited with patient and family and educated them that acute withdrawal from medication could have serious adverse effects. His mood continues prescribed regimen until Dr. Marin came and reevaluated need for medication. * PLACE Neurology consult with Dr. Marin * Continue primidone T2DM * Accu-Cheks * NovoLog sliding scale * Diabetic diet * We'll hold oral hypoglycemic agents HTN * Continue hydralazine * Continue lisinopril GERD * Cont' omeprazole 20 mg daily Back pain 2/2 Spinal stenosis * Continue gabapentin * Continue oxycodone Diet Diabetic diet DVT prophylaxis Lovenox SC CODE STATUS Full code Mild pain pathway Problem List: 1. Prostatitis 2. Sepsis 3. Weakness Pain Ratin Pain Location: none Pain Goal: Remain pain free Pain Plan: none Tomorrow's Labs & Rationales: none
--- NOTE | 2016-07-18 16:36 | ULTRASOUND REPORT ---
EXAMINATION: US TESTICULAR CLINICAL INFORMATION: Scrotal pain. COMPARISON: None. TECHNIQUE: Doppler, color and grayscale evaluation of the scrotum FINDINGS: RIGHT: The right testicle measures 4.7 x 2.4 x 4 cm, volume 32 mL. Echotexture is normal. No focal lesion is seen. Doppler and color flow is documented to the right testicle and is normal and symmetric. The right epididymis is normal. No right hydrocele or varicocele is seen. LEFT: The left testicle measures 3.6 x 3.3 x 2.7 cm, volume 23 mL. There are 2 simple left testicular cysts measuring 3 x 2 x 3 mm. No other focal testicular lesion is seen. Doppler and color signal is documented to the left testicle and is normal and symmetric. The left epididymis is normal. There is a small complex left hydrocele. There is no left varicocele. IMPRESSION: 2 small left simple testicular cysts. Small complex left hydrocele.
[2016-07-18 16:45] VITALS: BP 124/58
[2016-07-18 23:40] VITALS: BP 167/75
--- NOTE | 2016-07-19 08:37 | PN- Housestaff ---
NAREN LYNN,BENITA 07/19/16 0837: Subjective Follow-up For: Enterococcus UTI Complaints: no complaints Subjective: I followed up and examined the patient today. He was lying comfortably over his bed, with complaints of burning micturition. Vitals stable overnight, no active issues overnight. He still has tremors, and is due to seeing Dr. Marin his neurologist, later today. Review of Systems Constitutional: Reports: no symptoms. Cardiovascular: Reports: no symptoms. Respiratory: Reports: no symptoms. Neurological/Psychological: Reports: tremors. Objective Last 24 Hrs of Vital Signs/I&O Vital Signs Date Time Temp Pulse Resp B/P Pulse O2 O2 Flow FiO2 Ox Delivery Rate 07/19 1706 57 129/71 07/19 1611 99.6 57 20 129/71 95 07/19 0921 70 130/62 07/19 0921 70 130/62 07/19 0921 70 130/62 07/19 0916 98.7 70 20 130/62 92 Room Air 07/18 2340 97.6 83 20 167/75 93 Room Air 07/18 2108 65 134/60 07/18 1947 99.4 Intake & Output 07/19 1600 07/19 0800 07/19 0000 Intake Total 746 1400 Output Total Balance 746 1400 Intake, IV 626 600 Intake, Oral 120 800 Number 2 Bowel Movements Physical Exam General Appearance: Alert, Oriented X3, Cooperative, No Acute Distress Neck: Supple, No JVD Lymphatic: Cervical nl Cardiovascular: Regular Rate, Normal S1, Normal S2 Lungs: Clear to Auscultation, I examined right after his nubulization. Abdomen: Normal Bowel Sounds, Soft, No Tenderness Neurological: grossly normal except tremors over extremities at rest and on purposeful movements Current Medications: Current Medications Sig/Gilmar Start time Last Medication Dose Route Stop Time Status Admin Acetaminophen 500 MG Q6P PRN 07/16 2330 AC 07/18 PO 1845 Ampicillin Sodium/ 1,500 MG Q6H 07/17 2100 AC 07/19 Sulbactam Sodium IV 1705 Sodium Chloride 100 ML Aspirin 325 MG DAILY 07/17 1000 AC 07/19 PO 0921 Atorvastatin Calcium 20 MG 1700 07/17 1700 AC 07/19 PO 1707 Cholecalciferol 1,000 IU BID 07/17 1000 AC 07/19 PO 0921 Enoxaparin Sodium 40 MG DAILY 07/17 1000 AC 07/19 SC 0923 Gabapentin 300 MG TID 07/17 1000 AC 07/19 PO 1705 Hydralazine HCl 25 MG TID 07/17 0005 AC 07/19 PO 1706 Insulin Aspart 0 TIDAC 07/17 0800 AC 07/19 SC 1914 Lisinopril 10 MG DAILY 07/17 1000 AC 07/19 PO 0921 Melatonin 5 MG AT BEDTIME 07/17 2200 AC 07/18 PO 2107 Multivitamins 1 TAB DAILY 07/17 1000 AC 07/19 PO 0921 Niacin 1,000 MG AT BEDTIME 07/17 2200 AC 07/18 PO 2107 Omeprazole 20 MG DAILY AC 07/17 0700 AC 07/19 PO 0636 Phenazopyridine HCl 100 MG ONCE ONE 07/19 1800 DC PO 07/19 1801 Primidone 50 MG Q6 07/17 0600 AC 07/19 PO 1707 Sodium Chloride 1,000 ML .[id number] 07/18 1600 AC 07/19 IV 1916 Tamsulosin HCl 0.4 MG DAILY 07/17 1000 AC 07/19 PO 0921 Tramadol HCl 50 MG Q6 PRN 07/18 1645 AC 07/18 PO 1724 Last 24 Hrs of Lab/Alok Results Last 24 Hrs of Labs/Mics: Laboratory Tests 07/19/16 0715: Anion Gap 12, Estimated GFR > 60, BUN/Creatinine Ratio 20.0, CBC w Diff NO MAN DIFF REQ, RBC 3.39 L, MCV 96.1 H, MCH 32.4 H, RDW 13.7, MPV 9.1, Gran % 82.2 H, Lymphocytes % 8.9 L, Monocytes % 8.6, Eosinophils % 0.2, Basophils % 0.1, Absolute Granulocytes 12.0 H, Absolute Lymphocytes 1.3, Absolute Monocytes 1.3 H, Absolute Eosinophils 0, Absolute Basophils 0, PUBS MCHC 33.8 Assessment/Plan Assessment: This is an 80-year-old male with past medical history of spinal stenosis, BPH, hypertension, diabetes, GERD, nephrolithiasis, CABG 5, presented with chief complaint of fever, AMS, weakness, and dysuria. Upon workup in ED he was found to have white count of 16, with max temp of 101.1. Given concern for sepsis of urological origin he was admitted to medicine floor for further workup. CT IMPRESSION: 1. Nephrolithiasis of the bilateral kidneys. No ureteral or bladder stones and no hydroureteronephrosis of either kidney or renal collecting system. 2. Normal-appearing appendix, with the tip of the appendix identified within the left hemipelvis. Foot x-ray IMPRESSION: Soft tissue swelling in the ankle and foot with marked calcific atherosclerosis. No radiographic findings of acute osteomyelitis. 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 Venous Doppler IMPRESSION: Normal triplex scan without evidence of deep venous thrombosis involving the right lower extremity. PLAN Sepsis of urological origin: During admission pt had fever, and white count, with possible sources being right lower extremity cellulitis versus prostatitis versus UTI. In ED patient had tender prostate on rectal exam and his RLE was noted to be more swollen, warm, tender than left leg. He states that he has a painful burning sensation upon urination which is new for him. UA shows 25-50 urine red blood cell, 1-3 white blood cell, moderate hemoglobin. Urine negative for nitrite and leukocyte esterase. Urine culture now growing 40,000 CFU of enterococcus susceptible to ampicillin, Macrobid, and vancomycin. Negative CXR. Negative ultrasound of the leg. Despite negative leukocyte esterase or nitrite, cannot rule out prostatitis as he has perineal pain, fever, and tenderness on prostate exam. We will continue treatment with antibiotics. Unsure of duration of treatment for prostatitis and significance of only 40,000 CFU's in urine. * Urine culture grew enterococcus, sensitive to ampicillin, the patient is currently on Unasyn * Continue Tylenol when necessary for fever * Consider voiding trial in a.m. * Since the patient is having hesitancy during micturition, urology consult has been placed with Dr. Austin. Awaiting his input. Tremor: Patient has questionable history of Parkinson's disease. Per family, he was on primidone for years but during evaluation at [facility] Parkinson's clinic he was determined to not have Parkinson's and medication was discontinued. At that time patient was seen by Dr. Antonio Woodall. However, in the last month he was seen by Dr. Marin in [place] who restarted his primidone at a higher dose. Patient's family noted a worsening of tremor in the past 2 weeks as such, patient is attempting to discontinue medication on his own. He refused morning doses of primidone this AM. I visited with patient and family and educated them that acute withdrawal from medication could have serious adverse effects. His mood continues prescribed regimen until Dr. Marin came and reevaluated need for medication. * Awaiting Dr. Marin's consultation to modify the medication for tremor/ Parkinsonism. * Continue primidone T2DM * Accu-Cheks * NovoLog sliding scale * Diabetic diet * We'll hold oral hypoglycemic agents HTN * Continue hydralazine * Continue lisinopril GERD * Cont' omeprazole 20 mg daily Back pain 2/2 Spinal stenosis * Continue gabapentin * Continue oxycodone Diet Diabetic diet DVT prophylaxis Lovenox SC CODE STATUS Full code Mild pain pathway Problem List: 1. Prostatitis 2. Essential tremor Pain Ratin Pain Location: - Pain Goal: Remain pain free Pain Plan: prn Tomorrow's Labs & Rationales: BEP, CBC as follow up for sepsis and to see renal function after Lopez has been taken out today. R/o obstructive renal failure. FERNANDO CORCORAN MD 07/19/16 1119: Attending MD Review Statement Attending Statement Attending MD Statement: examined this patient, discuss w/resident/PA/CUSTOMER ADVOCACY MANAGER, agreed w/resident/PA/CUSTOMER ADVOCACY MANAGER, reviewed EMR data (avail) Attending Assessment/Plan: Patient with difficulty urinating, symptoms of retention and hesitancy, with significant burning during urination. If poor urine output will replace follow, consult urology. Will continue Unasyn for now.
[2016-07-19 09:16] VITALS: BP 130/62
[2016-07-19 09:23] LABS: ABSOLUTE BASOPHIL COUNT 0 /CUMM (0.0-0.2); ABSOLUTE EOSINOPHIL COUNT 0 /CUMM (0.0-0.7); ABSOLUTE LYMPH COUNT 1.3 /CUMM (1.2-3.4); ABSOLUTE MONOCYTE COUNT 1.3 /CUMM (0.10-0.60); BASOPHIL % 0.1 % (0.0-2.0); EOSINOPHIL % 0.2 % (0-5); GRANULOCYTE % 82.2 % (42.2-75.2); HEMATOCRIT 32.6 % (42-52); MEAN CORPUSCULAR HGB 32.4 PG (27.0-31.0); MEAN CORPUSCULAR HGB CONC 33.8 G/DL (33.0-37.0); MEAN CORPUSCULAR VOLUME 96.1 FL (80.0-94.0); MEAN PLATELET VOLUME 9.1 FL (7.4-10.4); PLATELET COUNT 143 /CUMM (130-400); RBC DISTRIBUTION WIDTH 13.7 % (11.5-14.5); RED BLOOD CELL CT 3.39 /CUMM (4.70-6.10); WHITE BLOOD CELL COUNT 14.6 /CUMM (4.8-10.8)
[2016-07-19 16:11] VITALS: BP 129/71
--- NOTE | 2016-07-19 17:35 | Cons- Neurology ---
General Information and HPI Consulting Request Date of Consult: 07/19/16 Requested By: FERNANDO CORCORAN MD Reason for Consult: tremor Source of Information: patient, family Exam Limitations: no limitations History of Present Illness: 80 yo patient known to me from the office admitted a few days ago with urosepsis , fever to 103, starting to feel better on antibiotics, has ongoing tremor of the hands for > 1year. Prior treatment with antiparkinson agents failed, then treated with Primidone up to 100 mg per day, seen at [facility] where primidone was tapered off but diagnosis of essential tremor accepted. Does not recall other meds tried. Here we elected to repeat the trial of Primidone, he has gone up to 50 mg 2 tabs BID but family think tremor is worse. Old records not available as office is now closed. Allergies/Medications Allergies: Coded Allergies: No Known Allergies (07/16/16) Home Med List: Aspirin (Aspirin*) 81 MG TAB.CHEW 325 MG PO D HEART (Reported) Cholecalciferol (Vitamin D3) (Vitamin D) 1,000 UNIT TABLET 1 TAB PO BID SUPPLIMENT (Reported) Fish Oil/Borage/Flax/Om3,6,9#1 ([place] 3-6-9 1,200 MG Softgel) 1,200 MG CAPSULE 1,000 MG PO D SUPPLIMENMT (Reported) Gabapentin 100 MG CAPSULE 300 MG PO TID NEURO (Reported) Hydralazine HCl 10 MG TABLET 25 MG PO TID HTN (Reported) Lisinopril 10 MG TABLET 10 MG PO D HTN (Reported) Multivit-Min/FA/Lycopen/Lutein (Centrum Silver Tablet) 0.4 MG-300 MCG-250 MCG TABLET 1 TAB PO D SUPPLIMENT (Reported) Niacin (Niaspan) 1,000 MG TAB.ER.24H 1,000 MG PO D SUPPLIMENT (Reported) Primidone (Mysoline) 50 MG TABLET 50 MG PO 4 U (Reported) Simvastatin (Simvastatin*) 5 MG TABLET 20 MG PO D CHOL (Reported) Sitagliptin Phos/Metformin HCl (Janumet 50-500 MG Tablet) 50 MG-500 MG TABLET 50-500 MG PO BID DM (Reported) Tamsulosin HCl (Flomax) 0.4 MG CAP.ER.24H 0.4 MG PO D PROSTATE (Reported) Current Medications: Current Medications Sig/Gilmar Start time Last Medication Dose Route Stop Time Status Admin Acetaminophen 500 MG Q6P PRN 07/16 2330 AC 07/18 PO 1845 Ampicillin Sodium/ 1,500 MG Q6H 07/17 2100 AC 07/19 Sulbactam Sodium IV 1705 Sodium Chloride 100 ML Aspirin 325 MG DAILY 07/17 1000 AC 07/19 PO 0921 Atorvastatin Calcium 20 MG 1700 07/17 1700 AC 07/19 PO 1707 Cholecalciferol 1,000 IU BID 07/17 1000 AC 07/19 PO 0921 Enoxaparin Sodium 40 MG DAILY 07/17 1000 AC 07/19 SC 0923 Gabapentin 300 MG TID 07/17 1000 AC 07/19 PO 1705 Hydralazine HCl 25 MG TID 07/17 0005 AC 07/19 PO 1706 Insulin Aspart 0 TIDAC 07/17 0800 AC 07/19 SC 1306 Lisinopril 10 MG DAILY 07/17 1000 AC 07/19 PO 0921 Melatonin 5 MG AT BEDTIME 07/17 2200 AC 07/18 PO 2107 Multivitamins 1 TAB DAILY 07/17 1000 AC 07/19 PO 0921 Niacin 1,000 MG AT BEDTIME 07/17 2200 AC 07/18 PO 2107 Omeprazole 20 MG DAILY AC 07/17 0700 AC 07/19 PO 0636 Primidone 50 MG Q6 07/17 0600 AC 07/19 PO 1707 Sodium Chloride 1,000 ML .[id number] 07/18 1600 AC 07/18 IV 1921 Tamsulosin HCl 0.4 MG DAILY 07/17 1000 AC 07/19 PO 0921 Tramadol HCl 50 MG Q6 PRN 07/18 1645 AC 07/18 PO 1724 Review of Systems Review of Systems: ROS: A complete medical systems review was obtained. No pertinent complaints were found. Past History Travel History Traveled to [place] past 21 day No Medical History Blood Transfusion Hx: No Neurological: Parkinson's disease, ESSENTIAL TREMORS EENT: NONE Cardiovascular: cad, htn Respiratory: NONE Gastrointestinal: NONE Hepatic: NONE Renal: NONE Musculoskeletal: NONE Psychiatric: NONE Endocrine: diabetes, Claudio's thyroiditis Blood Disorders: NONE Cancer(s): NONE Surgical History Surgical History: CABG Psychosocial History Where Do You Live? Home Services at Home: None Smoking Status: Never Smoked ETOH Use: denies use Exam & Diagnostic Data Vital Signs and I&O Vital Signs Date Time Temp Pulse Resp B/P Pulse O2 O2 Flow FiO2 Ox Delivery Rate 07/19 1706 57 129/71 07/19 1611 99.6 57 20 129/71 95 07/19 0921 70 130/62 07/19 0921 70 130/62 07/19 0921 70 130/62 07/19 0916 98.7 70 20 130/62 92 Room Air 07/18 2340 97.6 83 20 167/75 93 Room Air 07/18 2108 65 134/60 07/18 1947 99.4 07/18 1845 101.3 Intake & Output 07/19 1600 07/19 0800 07/19 0000 Intake Total 746 1400 Output Total Balance 746 1400 Intake, IV 626 600 Intake, Oral 120 800 Number 2 Bowel Movements Physical Exam: On exam the patient appeared generally well and in no distress. A constant rapid bilaterally symetric tremor present at rest but worse on maintaining the arms outstretched. no hypophonia, good facial expression Mental status: Alert, attentive, fully oriented, no language errors, recall and general fund of knowledge seem intact Visual roberts full , Eye movements full without nystagmus, pupils midsize equal round and reactive to light. Facial movement normal bilaterally Facial sensation normal bilaterally Hearing intact bilaterally Uvula elevates midline Tongue protrusion is midline Shoulder shrug symmetric Motor power and tone normal in all 4 extremities Sensation intact to primary modes Tendon reflexes normal and symmetric without pathologic signs Coordination no ataxia Gait not tested Last 48 Hours of Lab Results: Laboratory Tests 07/19 07/18 0715 0727 Chemistry Sodium (137 - 145 mmol/L) 136 L Potassium (3.5 - 5.1 mmol/L) 4.2 Chloride (98 - 107 mmol/L) 101 Carbon Dioxide (22 - 30 mmol/L) 23 Anion Gap (5 - 16) 12 BUN (9 - 20 mg/dL) 14 Creatinine (0.7 - 1.2 mg/dL) 0.7 Estimated GFR (>60 ml/min) > 60 BUN/Creatinine Ratio (7 - 25 %) 20.0 Hematology CBC w Diff NO MAN DIFF REQ NO MAN DIFF REQ WBC (4.8 - 10.8 /CUMM) 14.6 H 18.9 H RBC (4.70 - 6.10 /CUMM) 3.39 L 3.48 L Hgb (14.0 - 18.0 G/DL) 11.0 L 11.4 L Hct (42 - 52 %) 32.6 L 33.3 L MCV (80.0 - 94.0 FL) 96.1 H 95.6 H MCH (27.0 - 31.0 PG) 32.4 H 32.8 H RDW (11.5 - 14.5 %) 13.7 13.4 Plt Count (130 - 400 /CUMM) 143 134 MPV (7.4 - 10.4 FL) 9.1 8.6 Gran % (42.2 - 75.2 %) 82.2 H 82.7 H Lymphocytes % (20.5 - 51.1 %) 8.9 L 7.8 L Monocytes % (1.7 - 9.3 %) 8.6 9.3 Eosinophils % (0 - 5 %) 0.2 0.1 Basophils % (0.0 - 2.0 %) 0.1 0.1 Absolute Granulocytes (1.4 - 6.5 /CUMM) 12.0 H 15.6 H Absolute Lymphocytes (1.2 - 3.4 /CUMM) 1.3 1.5 Absolute Monocytes (0.10 - 0.60 /CUMM) 1.3 H 1.8 H Absolute Eosinophils (0.0 - 0.7 /CUMM) 0 0 Absolute Basophils (0.0 - 0.2 /CUMM) 0 0 PUBS MCHC (33.0 - 37.0 G/DL) 33.8 34.3 01/02 0600 Chemistry Sodium Cancelled Potassium Cancelled Chloride Cancelled Carbon Dioxide Cancelled Anion Gap Cancelled BUN Cancelled Creatinine Cancelled BUN/Creatinine Ratio Cancelled Imaging/Other Studies: no neuro imaging Assessment/Plan Assessment: Essential tremor, uncontrolled on Primidone and gabapentin at current doses, actually worse subjectively with the increased primidone. He carries a diagnosis of Parkinsons but this is not certain. Recommendations: taper off primidone by 50 mg every 4 days continue gabapentin follow-up in the office after discharge, when medically stable. Consult Acknowledgment - Thank you for your consult request.
[2016-07-20 00:05] VITALS: BP 120/60
--- NOTE | 2016-07-20 06:21 | PN- Housestaff ---
NAREN LYNN,BENITA 07/20/16 0621: Subjective Follow-up For: Enterococcus UTI Complaints: no complaints Subjective: I examined the patient today. He was lying comfortably on the bed and was not in acute distress. He did not have any active complaints, however said that he was still having difficulty during urination. He still needs to stress a lot, to the point that he has fecal incontinence sometimes while straining. He still has tremors on his hand. Vitals stable overnight, no overnight issues. Review of Systems Constitutional: Reports: no symptoms. EENTM: Reports: no symptoms. Cardiovascular: Reports: no symptoms. Respiratory: Reports: no symptoms. Gastrointestinal: Reports: no symptoms. Genitourinary: Reports: see HPI, hesitation. Denies: discharge, pain. Musculoskeletal: Reports: no symptoms. Skin: Reports: no symptoms. Neurological/Psychological: Reports: no symptoms. Hematologic/Endocrine: Reports: no symptoms. Objective Last 24 Hrs of Vital Signs/I&O Vital Signs Date Time Temp Pulse Resp B/P Pulse O2 O2 Flow FiO2 Ox Delivery Rate 07/20 0005 98.0 75 18 120/60 96 Room Air 07/19 2124 64 140/60 07/19 1706 57 129/71 07/19 1611 99.6 57 20 129/71 95 / 0921 70 130/62 07/19 0921 70 130/62 07/19 0921 70 130/62 07/19 0916 98.7 70 20 130/62 92 Room Air Intake & Output 07/20 0800 07/20 0000 07/19 1600 Intake Total 750 1100 Output Total 300 Balance 450 1100 Intake, IV 300 600 Intake, Oral 450 500 Output, Urine 300 Physical Exam General Appearance: Alert, Oriented X3, Cooperative, No Acute Distress Skin: No Rashes, No Breakdown, No Significant Lesion HEENT: Atraumatic, PERRLA, EOMI, Mucous Membr. moist/pink Neck: Supple, No JVD Lymphatic: Cervical nl Cardiovascular: Regular Rate, Normal S1, Normal S2 Lungs: Clear to Auscultation, Normal Air Movement Abdomen: Normal Bowel Sounds, Soft, No Tenderness Neurological: grossly intact Extremities: No Clubbing, No Cyanosis, No Edema, Normal Pulses, No Tenderness/ Swelling Vascular: Normal Pulses, Pulses Symmetrical Current Medications: Current Medications Sig/Gilmar Start time Last Medication Dose Route Stop Time Status Admin Acetaminophen 500 MG Q6P PRN 07/16 2330 AC 07/20 PO 0631 Ampicillin Sodium/ 1,500 MG Q6H 07/17 2100 AC 07/20 Sulbactam Sodium IV 0214 Sodium Chloride 100 ML Aspirin 325 MG DAILY 07/17 1000 AC 07/19 PO 0921 Atorvastatin Calcium 20 MG 1700 07/17 1700 AC 07/19 PO 1707 Cholecalciferol 1,000 IU BID 07/17 1000 AC 07/19 PO 2125 Enoxaparin Sodium 40 MG DAILY 07/17 1000 AC 07/19 SC 0923 Gabapentin 300 MG TID 07/17 1000 AC 07/19 PO 2124 Hydralazine HCl 25 MG TID 07/17 0005 AC 07/19 PO 2124 Insulin Aspart 0 TIDAC 07/17 0800 AC 07/19 SC 1914 Lisinopril 10 MG DAILY 07/17 1000 AC 07/19 PO 0921 Melatonin 5 MG AT BEDTIME 07/17 2200 AC 07/19 PO 2124 Multivitamins 1 TAB DAILY 07/17 1000 AC 07/19 PO 0921 Niacin 1,000 MG AT BEDTIME 07/17 2200 AC 07/19 PO 2124 Omeprazole 20 MG DAILY AC 07/17 0700 AC 07/20 PO 0630 Phenazopyridine HCl 100 MG ONCE ONE 07/19 1800 DC 07/19 PO 07/19 1801 2125 Primidone 50 MG Q6 07/17 0600 AC 07/20 PO 0631 Sodium Chloride 1,000 ML .[id number] 07/18 1600 AC 07/20 IV 0641 Tamsulosin HCl 0.4 MG DAILY 07/17 1000 AC 07/19 PO 0921 Tramadol HCl 50 MG Q6 PRN 07/18 1645 AC 07/18 PO 1724 Last 24 Hrs of Lab/Alok Results Last 24 Hrs of Labs/Mics: Laboratory Tests 07/20/16 1140: CBC w Diff NO MAN DIFF REQ, RBC 3.53 L, MCV 94.5 H, MCH 32.1 H, RDW 13.1, MPV 8.2, Gran % 77.8 H, Lymphocytes % 12.2 L, Monocytes % 9.0, Eosinophils % 0.8, Basophils % 0.2, Absolute Granulocytes 7.3 H, Absolute Lymphocytes 1.1 L, Absolute Monocytes 0.8 H, Absolute Eosinophils 0.1, Absolute Basophils 0, PUBS MCHC 33.9 07/20/16 0624: Anion Gap 11, Estimated GFR > 60, BUN/Creatinine Ratio 15.7 Assessment/Plan Assessment: This is an 80-year-old male with past medical history of spinal stenosis, BPH, hypertension, diabetes, GERD, nephrolithiasis, CABG 5, presented with chief complaint of fever, AMS, weakness, and dysuria. Upon workup in ED he was found to have white count of 16, with max temp of 101.1. Given concern for sepsis of urological origin he was admitted to medicine floor for further workup. CT IMPRESSION: 1. Nephrolithiasis of the bilateral kidneys. No ureteral or bladder stones and no hydroureteronephrosis of either kidney or renal collecting system. 2. Normal-appearing appendix, with the tip of the appendix identified within the left hemipelvis. Foot x-ray IMPRESSION: Soft tissue swelling in the ankle and foot with marked calcific atherosclerosis. No radiographic findings of acute osteomyelitis. 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 Venous Doppler IMPRESSION: Normal triplex scan without evidence of deep venous thrombosis involving the right lower extremity. PLAN #Sepsis of urological origin: Prostatitis: During admission pt had fever, and white count, with possible sources being right lower extremity cellulitis versus prostatitis versus UTI. In ED patient had tender prostate on rectal exam and his RLE was noted to be more swollen, warm, tender than left leg. He states that he has a painful burning sensation upon urination which is new for him. UA shows 25-50 urine red blood cell, 1-3 white blood cell, moderate hemoglobin. Urine negative for nitrite and leukocyte esterase. Urine culture now growing 40 ,000 CFU of enterococcus susceptible to ampicillin, Macrobid, and vancomycin. Negative CXR. Negative ultrasound of the leg. Despite negative leukocyte esterase or nitrite, cannot rule out prostatitis as he has perineal pain, fever, and tenderness on prostate exam. We will continue treatment with antibiotics. Unsure of duration of treatment for prostatitis and significance of only 40,000 CFU's in urine. * Urine culture grew enterococcus, sensitive to ampicillin, the patient is currently on Unasyn * Continue Tylenol when necessary for fever * Consider voiding trial in a.m. * Since the patient is having hesitancy during micturition, urology consult has been placed with Dr. Austin. >> According to Dr. Austin, he can be discharged soon with total 3 weeks of antibiotic, which he can take per oral. #Tremor: Patient has questionable history of Parkinson's disease. Per family, he was on primidone for years but during evaluation at [facility] [place] [facility] he was determined to not have Parkinson's and medication was discontinued. At that time patient was seen by Dr. Antonio Woodall. However, in the last month he was seen by Dr. Marin in [place] who restarted his primidone at a higher dose. Patient's family noted a worsening of tremor in the past 2 weeks as such, patient is attempting to discontinue medication on his own. He refused morning doses of primidone this AM. I visited with patient and family and educated them that acute withdrawal from medication could have serious adverse effects. His mood continues prescribed regimen until Dr. Marin came and reevaluated need for medication. * According to Dr. Marin, dose of primidone decreased to 3 times daily for 4 days and then plan to decrease by 50 mg every 4 days. * Diagnosis of Parkinson's disease has been pulled out and was placed as essential tremor and started. #T2DM * Accu-Cheks * NovoLog sliding scale * Diabetic diet * We'll hold oral hypoglycemic agents #HTN * Continue hydralazine * Continue lisinopril #GERD * Cont' omeprazole 20 mg daily #Back pain 2/2 Spinal stenosis * Continue gabapentin * Continue oxycodone Diet Diabetic diet DVT prophylaxis Lovenox SC CODE STATUS Full code Mild pain pathway Problem List: 1. Prostatitis 2. Essential tremor Pain Ratin Pain Location: - Pain Goal: Remain pain free Pain Plan: - Tomorrow's Labs & Rationales: none FERNANDO CORCORAN MD 07/20/16 1609: Attending MD Review Statement Attending Statement Attending MD Statement: examined this patient, discuss w/resident/PA/[employer], agreed w/resident/PA/[employer], reviewed EMR data (avail) Attending Assessment/Plan: 80M PMH CAD s/p CABG, spinal stenosis, BPH, HTN, T2DM, GERD, kidney stones admitted with sepsis secondary to acute prostatitis with urine cultures growing enterococcus sensitive to penicillin. Patient was spiking daily fevers until today. He has significant burning during urination, hesitancy, and difficulty initiating urination, with straining leading to fecal incontinence. He also has Parkinson's disease with increase in tremor of late. Today he feels a bit better and is able to urinate more freely. He is afebrile today with stable vitals, and WBC is decreased to 9.2. Seen by urology today. Seen by neurology yesterday. 1. Sepsis 2. Acute prostatitis 3. Enterococcal UTI 4. Dysuria 5. Parkinson's disease Plan - Continue on general medicine - Continue Unasyn - Continue Pyridium - Continue Flomax, Finasteride added today - Follow urology and neurology recommendations - Will decrease Primidone dose with plans to continue taper as an outpatient - Continue home medications - DVT PPx - Anticipated discharge tomorrow to [facility] - Please send CMR to pharmacy for review and place anticipated discharge order
[2016-07-20 08:37] VITALS: BP 122/60
--- NOTE | 2016-07-20 11:31 | Patient Discharge Instructions ---
Discharge Instructions General Discharge Information You were seen/treated for: Sepsis of urological origin Prostatitis Special Instructions: Please follow-up with your primary care physician within 7 days of discharge. Please follow-up with your urologist (Dr Carson Austin) within seven days of discharge. His follow-up with Dr. Marin neurologist, within 10 days of discharge. You need to take Primidone (medication) on a tapering (gradually lowering) dose as prescribed, and finally stop. Please return to emergency if symptoms worsen. Diet Continue normal diet: Yes Recommended Diet: Heart Healthy Activity Full Activity/No Limits: No Activity Self Limited: Yes Acute Coronary Syndrome Inclusion Criteria At DC or during hospital stay patient has or had the following: ACS DIAGNOSIS No Discharge Core Measures Meds if any: Prescribed or Continued at Discharge Meds if any: NOT Prescribed or Continued at Discharge Congestive Heart Failure Inclusion Criteria At DC or during hospital stay patient has or had the following: CHF DIAGNOSIS No Discharge Core Measures Meds if any: Prescribed or Continued at Discharge Meds if any: NOT Prescribed or Continued at Discharge Cerebrovascular accident Inclusion Criteria At DC or during hospital stay patient has or had the following: CVA/TIA Diagnosis No Discharge Core Measures Meds if any: Prescribed or Continued at Discharge Meds if any: NOT Prescribed or Continued at Discharge Venous thromboembolism Inclusion Criteria VTE Diagnosis No VTE Type NONE VTE Confirmed by (Test) NONE Discharge Core Measures - Per Current guidelines, there needs to be overlap - treatment for the first 5 days of Warfarin therapy. - If discharged on Warfarin prior to 5 days of - overlap therapy, the patient will need to be - assessed for post discharge needs including - *Post discharge parental anticoagulation - *Warfarin and/or parental anticoagulation education - *Follow up date to check INR post discharge At least 5 days overlap therapy as Inpatient No Meds if any: Prescribed or Continued at Discharge Note: Overlap Therapy is Warfarin and Anticoagulant Meds if any: NOT Prescribed or Continued at Discharge
[2016-07-20 11:59] LABS: ABSOLUTE BASOPHIL COUNT 0 /CUMM (0.0-0.2); ABSOLUTE EOSINOPHIL COUNT 0.1 /CUMM (0.0-0.7); ABSOLUTE GRANULOCYTE CT 7.3 /CUMM (1.4-6.5); ABSOLUTE LYMPH COUNT 1.1 /CUMM (1.2-3.4); ABSOLUTE MONOCYTE COUNT 0.8 /CUMM (0.10-0.60); BASOPHIL % 0.2 % (0.0-2.0); EOSINOPHIL % 0.8 % (0-5); GRANULOCYTE % 77.8 % (42.2-75.2); HEMATOCRIT 33.4 % (42-52); MEAN CORPUSCULAR HGB 32.1 PG (27.0-31.0); MEAN CORPUSCULAR HGB CONC 33.9 G/DL (33.0-37.0); MEAN CORPUSCULAR VOLUME 94.5 FL (80.0-94.0); MEAN PLATELET VOLUME 8.2 FL (7.4-10.4); PLATELET COUNT 170 /CUMM (130-400); RBC DISTRIBUTION WIDTH 13.1 % (11.5-14.5); RED BLOOD CELL CT 3.53 /CUMM (4.70-6.10); WHITE BLOOD CELL COUNT 9.4 /CUMM (4.8-10.8)
--- NOTE | 2016-07-20 14:34 | Cons- Urology ---
General Information and HPI Consulting Request Date of Consult: 07/20/16 Requested By: FERNANDO CORCORAN MD Reason for Consult: prostatitis Source of Information: patient, old records Exam Limitations: no limitations History of Present Illness: 80 YEAR OLD RECENTLY [place]. HAD DYSURIA 1-2 DAYS PRIOR TO ADMISSION WITH [facility] CHANGE, RETENTION, DYSURIA, SEPSIS. NOW VOIDING EASILY WITHOUT DYSURIA. CURRENTLY ON FLOMAX, AND NOW PROSCAR ADDED. IV ABX FOR ENTEROCOCCUS APPROPRIATE Allergies/Medications Allergies: Coded Allergies: No Known Allergies (07/16/16) Home Med List: Aspirin (Aspirin*) 81 MG TAB.CHEW 325 MG PO D HEART (Reported) Cholecalciferol (Vitamin D3) (Vitamin D) 1,000 UNIT TABLET 1 TAB PO BID SUPPLIMENT (Reported) Fish Oil/Borage/Flax/Om3,6,9#1 ([place] 3-6-9 1,200 MG Softgel) 1,200 MG CAPSULE 1,000 MG PO D SUPPLIMENMT (Reported) Gabapentin 100 MG CAPSULE 300 MG PO TID NEURO (Reported) Hydralazine HCl 10 MG TABLET 25 MG PO TID HTN (Reported) Lisinopril 10 MG TABLET 10 MG PO D HTN (Reported) Multivit-Min/FA/Lycopen/Lutein (Centrum Silver Tablet) 0.4 MG-300 MCG-250 MCG TABLET 1 TAB PO D SUPPLIMENT (Reported) Niacin (Niaspan) 1,000 MG TAB.ER.24H 1,000 MG PO D SUPPLIMENT (Reported) Primidone (Mysoline) 50 MG TABLET 50 MG PO 4 U (Reported) Simvastatin (Simvastatin*) 5 MG TABLET 20 MG PO D CHOL (Reported) Sitagliptin Phos/Metformin HCl (Janumet 50-500 MG Tablet) 50 MG-500 MG TABLET 50-500 MG PO BID DM (Reported) Tamsulosin HCl (Flomax) 0.4 MG CAP.ER.24H 0.4 MG PO D PROSTATE (Reported) Current Medications: Current Medications Sig/Gilmar Start time Last Medication Dose Route Stop Time Status Admin Acetaminophen 500 MG Q6P PRN 07/16 2330 AC 07/20 PO 0631 Ampicillin Sodium/ 1,500 MG Q6H 07/17 2100 AC 07/20 Sulbactam Sodium IV 0900 Sodium Chloride 100 ML Aspirin 325 MG DAILY 07/17 1000 AC 07/20 PO 0904 Atorvastatin Calcium 20 MG 1700 07/17 1700 AC 07/19 PO 1707 Cholecalciferol 1,000 IU BID 07/17 1000 AC 07/20 PO 0904 Enoxaparin Sodium 40 MG DAILY 07/17 1000 AC 07/20 SC 0904 Gabapentin 300 MG TID 07/17 1000 AC 07/20 PO 0904 Hydralazine HCl 25 MG TID 07/17 0005 AC 07/20 PO 0904 Insulin Aspart 0 TIDAC 07/17 0800 AC 07/20 SC 0859 Lisinopril 10 MG DAILY 07/17 1000 AC 07/20 PO 0904 Melatonin 5 MG AT BEDTIME 07/17 2200 AC 07/19 PO 2124 Multivitamins 1 TAB DAILY 07/17 1000 AC 07/20 PO 0904 Niacin 1,000 MG AT BEDTIME 07/17 2200 AC 07/19 PO 2124 Omeprazole 20 MG DAILY AC 07/17 0700 AC 07/20 PO 0630 Oxycodone/ 1 TAB Q6P PRN 07/20 1045 AC 07/20 Acetaminophen PO 1055 Patient Medication 1 ED .STK-MED ONE 07/20 1402 DC Teaching ED 07/20 1403 Phenazopyridine HCl 100 MG DAILY NEEDED PRN 07/20 1145 AC PO Phenazopyridine HCl 100 MG ONCE ONE 07/19 1800 DC 07/19 PO 07/19 1801 2125 Primidone 50 MG TID 07/20 1600 AC PO Primidone 50 MG Q6 07/17 0600 DC 07/20 PO 0631 Sodium Chloride 1,000 ML .[id number] 07/18 1600 AC 07/20 IV 0641 Tamsulosin HCl 0.4 MG DAILY 07/17 1000 AC 07/20 PO 0904 Tramadol HCl 50 MG Q6 PRN 07/18 1645 AC 07/18 PO 1724 Past History Medical History Blood Transfusion Hx: No Neurological: Parkinson's disease, ESSENTIAL TREMORS EENT: NONE Cardiovascular: cad, htn Respiratory: NONE Gastrointestinal: NONE Hepatic: NONE Renal: NONE Musculoskeletal: NONE Psychiatric: NONE Endocrine: diabetes, Claudio's thyroiditis Blood Disorders: NONE Cancer(s): NONE Surgical History Pertinent Surgical History: CABG Psychosocial History Where Do You Live? Home Services at Home: None Smoking Status: Never Smoked ETOH Use: denies use Employment History Retired? yes Review of Systems Review of Systems Constitutional: Reports: weakness. Denies: no symptoms. EENTM: Denies: no symptoms. Cardiovascular: Denies: no symptoms. Respiratory: Denies: no symptoms. GI: Denies: no symptoms. Genitourinary: Reports: hesitation. Skin: Denies: no symptoms. Exam & Diagnostic Data Vital Signs and I&O Vital Signs Date Time Temp Pulse Resp B/P Pulse O2 O2 Flow FiO2 Ox Delivery Rate 07/20 1144 Room Air 07/20 0904 70 122/60 07/20 0904 70 122/60 07/20 0837 98.1 70 20 122/60 94 Room Air 07/20 0005 98.0 75 18 120/60 96 Room Air 07/19 2124 64 140/60 07/19 1706 57 129/71 07/19 1611 99.6 57 20 129/71 95 Intake & Output 07/20 1600 07/20 0800 07/20 0000 07/19 1600 07/19 0800 07/19 0000 Intake Total 498 100 3293 746 1400 Output Total 300 Balance 271 631 3687 746 1400 Intake, IV 600 300 600 626 600 Intake, Oral 120 450 500 120 800 Number 2 Bowel Movements Output, Urine 300 Patient 198 lb Weight Physical Exam General Appearance: well developed/nourished, no apparent distress Head: atraumatic, normal appearance Eyes: Bilateral: normal appearance. Ears, Nose, Throat: normal pharynx Neck: normal inspection Respiratory: normal breath sounds Cardiovascular: regular rate/rhythm Gastrointestinal: normal bowel sounds, soft, non-tender Rectal: normal exam Back: no vertebral tenderness Extremities: normal inspection Reproductive: Normal male genitalia Last 24 Hours of Labs: Laboratory Tests 07/20 07/20 1140 0624 Chemistry Sodium (137 - 145 mmol/L) 136 L Potassium (3.5 - 5.1 mmol/L) 4.2 Chloride (98 - 107 mmol/L) 101 Carbon Dioxide (22 - 30 mmol/L) 24 Anion Gap (5 - 16) 11 BUN (9 - 20 mg/dL) 11 Creatinine (0.7 - 1.2 mg/dL) 0.7 Estimated GFR (>60 ml/min) > 60 BUN/Creatinine Ratio (7 - 25 %) 15.7 Hematology CBC w Diff NO MAN DIFF REQ WBC (4.8 - 10.8 /CUMM) 9.4 RBC (4.70 - 6.10 /CUMM) 3.53 L Hgb (14.0 - 18.0 G/DL) 11.3 L Hct (42 - 52 %) 33.4 L MCV (80.0 - 94.0 FL) 94.5 H MCH (27.0 - 31.0 PG) 32.1 H RDW (11.5 - 14.5 %) 13.1 Plt Count (130 - 400 /CUMM) 170 MPV (7.4 - 10.4 FL) 8.2 Gran % (42.2 - 75.2 %) 77.8 H Lymphocytes % (20.5 - 51.1 %) 12.2 L Monocytes % (1.7 - 9.3 %) 9.0 Eosinophils % (0 - 5 %) 0.8 Basophils % (0.0 - 2.0 %) 0.2 Absolute Granulocytes (1.4 - 6.5 /CUMM) 7.3 H Absolute Lymphocytes (1.2 - 3.4 /CUMM) 1.1 L Absolute Monocytes (0.10 - 0.60 /CUMM) 0.8 H Absolute Eosinophils (0.0 - 0.7 /CUMM) 0.1 Absolute Basophils (0.0 - 0.2 /CUMM) 0 PUBS MCHC (33.0 - 37.0 G/DL) 33.9 Imaging Results: PATIENT: EMILY SCHAFFER SR PRESENT AGE: 80 PATIENT ACCOUNT NO: [id number] : 33 LOCATION: [facility] ORDERING PHYSICIAN: CHLOE CEBALLOS MD SERVICE DATE: 07/17/16- EXAM TYPE: US - US-TESTICULAR EXAMINATION: US TESTICULAR CLINICAL INFORMATION: Scrotal pain. COMPARISON: None. TECHNIQUE: Doppler, color and grayscale evaluation of the scrotum FINDINGS: RIGHT: The right testicle measures 4.7 x 2.4 x 4 cm, volume 32 mL. Echotexture is normal. No focal lesion is seen. Doppler and color flow is documented to the right testicle and is normal and symmetric. The right epididymis is normal. No right hydrocele or varicocele is seen. LEFT: The left testicle measures 3.6 x 3.3 x 2.7 cm, volume 23 mL. There are 2 simple left testicular cysts measuring 3 x 2 x 3 mm. No other focal testicular lesion is seen. Doppler and color signal is documented to the left testicle and is normal and symmetric. The left epididymis is normal. There is a small complex left hydrocele. There is no left varicocele. IMPRESSION: 2 small left simple testicular cysts. Small complex left hydrocele. DICTATED BY: RASHEED LOUIS MD DATE/TIME DICTATED:07/18/161620 CATHODE BUILDER:ADAMARIS PATIENT: EMILY SCHAFFER SR PRESENT AGE: 80 PATIENT ACCOUNT NO: [id number] : 33 LOCATION: [facility] ORDERING PHYSICIAN: DANIEL LEON MD SERVICE DATE: 07/16/16 EXAM TYPE: CAT - CT ABD & PELVIS W/O IV CONTRAS EXAMINATION: CT ABDOMEN AND PELVIS WITHOUT CONTRAST CLINICAL INFORMATION: Left-sided abdominal pain and fever. COMPARISON: None. TECHNIQUE: Multidetector volumetric imaging was performed from the superior aspect of the liver through the pubic symphysis. Sagittal and coronal reformatted images were obtained on the technologist's workstation. DLP: 919 mGy-cm. FINDINGS: Limited evaluation of the solid abdominal viscera in the absence of intravenous contrast. LUNG BASES: The visualized lung bases are unremarkable. LIVER, GALLBLADDER, AND BILIARY TREE: The liver is normal in size, shape, and attenuation. No contour deforming hepatic lesion or biliary ductal dilatation is present. The gallbladder is unremarkable with no evidence of radiopaque gallstones, gallbladder wall thickening, or obvious pericholecystic inflammatory changes. PANCREAS: Unremarkable. SPLEEN: Unremarkable. ADRENAL GLANDS: Unremarkable. KIDNEYS AND URETERS: Evaluation of the bilateral kidneys and renal collecting systems is notable for nephrolithiasis of the bilateral kidneys. There is a punctate 1-2 mm nonobstructing stone within the lower pole of the right kidney. There are 3 mm nonobstructing stones within the mid and lower poles of the left kidney. No ureteral stones are identified and there is no appreciable hydroureteronephrosis of either kidney or renal collecting system. BLADDER: Unremarkable. GASTROINTESTINAL TRACT: Normal anatomic orientation of the stomach relative to the duodenum. Normal caliber of abdominal and pelvic bowel loops, without evidence of obstruction or ileus. No circumferential bowel wall thickening with surrounding inflammatory changes to suggest an underlying infectious or inflammatory enterocolitis. Normal-appearing appendix, with the tip of the appendix identified within the left hemipelvis. No organizing intra-abdominal fluid collections or free intraperitoneal air. Incidental note is made of a small hiatal hernia. ABDOMINAL WALL: Small fat-containing umbilical hernia. Small fat-containing bilateral inguinal hernias. LYMPH NODES: No significant abdominal or pelvic adenopathy. VASCULAR: Atherosclerosis of the abdominal aorta and its branching vessels. Normal course and caliber of the abdominal aorta and its branching vessels, without aneurysmal dilatation. Limited evaluation for vascular patency in the absence of intravenous contrast. PELVIC VISCERA: Unremarkable. OSSEOUS STRUCTURES: No acute osseous abnormality. Odij-si-ctezoyxy degenerative changes of the imaged thoracolumbar spine. IMPRESSION: 1. Nephrolithiasis of the bilateral kidneys. No ureteral or bladder stones and no hydroureteronephrosis of either kidney or renal collecting system. 2. Normal-appearing appendix, with the tip of the appendix identified within the left hemipelvis. Assessment/Plan Assessment/Plan pt with bilat. renal stones: will need ESWL in near future (07/26/[id number] TO SCHEDULE). CONTINUE WITH ABX 21 DAYS:CHANGE TO PO FOR DC HOME. CONTINUE FLOMAX AND PROSCAR. Copies To: LILA VO MD Consult Acknowledgment - Thank you for your consult request. Attending MD Review Statement Attending Statement Attending MD Statement: examined this patient Attending Assessment/Plan: pt with acute prostatitis and retentive symptoms: also bilat. stones: will need abx, flomax, proscar. will also need ESWL in near future (can be done as outpt) .
--- NOTE | 2016-07-20 14:35 | PN- Neurology ---
Subjective Subjective: Tremor persists unchanged. Office records reviewed (and placed in chart) diagnosis is essential tremor, SO scan was negative for Parkinson's, failed metoprolol, 2 trials of primidone, adverse reaction on first dose of topiramate and already on gabapentin without benefit. Review of Systems: Awaiting urology evaluation Objective Vital Signs and I&Os Vital Signs Date Time Temp Pulse Resp B/P Pulse O2 O2 Flow FiO2 Ox Delivery Rate 07/20 1144 Room Air 07/20 0904 70 122/60 07/20 0904 70 122/60 07/20 0837 98.1 70 20 122/60 94 Room Air 07/20 0005 98.0 75 18 120/60 96 Room Air 07/19 2124 64 140/60 07/19 1706 57 129/71 07/19 1611 99.6 57 20 129/71 95 Intake & Output 07/20 1600 07/20 0800 07/20 0000 07/19 1600 07/19 0800 07/19 0000 Intake Total 438 240 5660 746 1400 Output Total 300 Balance 810 001 4187 746 1400 Intake, IV 600 300 600 626 600 Intake, Oral 120 450 500 120 800 Number 2 Bowel Movements Output, Urine 300 Patient 198 lb Weight Physical Exam: Alert, attentive, speech clear, tone and power normal moderately severe tremor worse with the hands outstretched, bilaterally symmetric Current Medications: Current Medications Sig/Gilmar Start time Last Medication Dose Route Stop Time Status Admin Acetaminophen 500 MG Q6P PRN 07/16 2330 AC 07/20 PO 0631 Ampicillin Sodium/ 1,500 MG Q6H 07/17 2100 AC 07/20 Sulbactam Sodium IV 0900 Sodium Chloride 100 ML Aspirin 325 MG DAILY 07/17 1000 AC 07/20 PO 0904 Atorvastatin Calcium 20 MG 1700 07/17 1700 AC 07/19 PO 1707 Cholecalciferol 1,000 IU BID 07/17 1000 AC 07/20 PO 0904 Enoxaparin Sodium 40 MG DAILY 07/17 1000 AC 07/20 SC 0904 Gabapentin 300 MG TID 07/17 1000 AC 07/20 PO 0904 Hydralazine HCl 25 MG TID 07/17 0005 AC 07/20 PO 0904 Insulin Aspart 0 TIDAC 07/17 0800 AC 07/20 SC 0859 Lisinopril 10 MG DAILY 07/17 1000 AC 07/20 PO 0904 Melatonin 5 MG AT BEDTIME 07/17 2200 AC 07/19 PO 2124 Multivitamins 1 TAB DAILY 07/17 1000 AC 07/20 PO 0904 Niacin 1,000 MG AT BEDTIME 07/17 2200 AC 07/19 PO 2124 Omeprazole 20 MG DAILY AC 07/17 0700 AC 07/20 PO 0630 Oxycodone/ 1 TAB Q6P PRN 07/20 1045 AC 07/20 Acetaminophen PO 1055 Patient Medication 1 ED .STK-MED ONE 07/20 1402 DC Teaching ED 07/20 1403 Phenazopyridine HCl 100 MG DAILY NEEDED PRN 07/20 1145 AC PO Phenazopyridine HCl 100 MG ONCE ONE 07/19 1800 DC 07/19 PO 07/19 1801 2125 Primidone 50 MG TID 07/20 1600 AC PO Primidone 50 MG Q6 07/17 0600 DC 07/20 PO 0631 Sodium Chloride 1,000 ML .[id number] 07/18 1600 AC 07/20 IV 0641 Tamsulosin HCl 0.4 MG DAILY 07/17 1000 AC 07/20 PO 0904 Tramadol HCl 50 MG Q6 PRN 07/18 1645 AC 07/18 PO 1724 Results Last 24 Hours of Lab Results: Laboratory Tests 07/20 07/20 1140 0624 Chemistry Sodium (137 - 145 mmol/L) 136 L Potassium (3.5 - 5.1 mmol/L) 4.2 Chloride (98 - 107 mmol/L) 101 Carbon Dioxide (22 - 30 mmol/L) 24 Anion Gap (5 - 16) 11 BUN (9 - 20 mg/dL) 11 Creatinine (0.7 - 1.2 mg/dL) 0.7 Estimated GFR (>60 ml/min) > 60 BUN/Creatinine Ratio (7 - 25 %) 15.7 Hematology CBC w Diff NO MAN DIFF REQ WBC (4.8 - 10.8 /CUMM) 9.4 RBC (4.70 - 6.10 /CUMM) 3.53 L Hgb (14.0 - 18.0 G/DL) 11.3 L Hct (42 - 52 %) 33.4 L MCV (80.0 - 94.0 FL) 94.5 H MCH (27.0 - 31.0 PG) 32.1 H RDW (11.5 - 14.5 %) 13.1 Plt Count (130 - 400 /CUMM) 170 MPV (7.4 - 10.4 FL) 8.2 Gran % (42.2 - 75.2 %) 77.8 H Lymphocytes % (20.5 - 51.1 %) 12.2 L Monocytes % (1.7 - 9.3 %) 9.0 Eosinophils % (0 - 5 %) 0.8 Basophils % (0.0 - 2.0 %) 0.2 Absolute Granulocytes (1.4 - 6.5 /CUMM) 7.3 H Absolute Lymphocytes (1.2 - 3.4 /CUMM) 1.1 L Absolute Monocytes (0.10 - 0.60 /CUMM) 0.8 H Absolute Eosinophils (0.0 - 0.7 /CUMM) 0.1 Absolute Basophils (0.0 - 0.2 /CUMM) 0 PUBS MCHC (33.0 - 37.0 G/DL) 33.9 Recent Imaging Studies: . Assessment/Plan Assessment: Essential tremor refractory to medications. Diagnosis Parkinson's disease is incorrect Plan: Delete Parkinson's disease from the medical record replace it with essential tremor Would begin one more trial of beta blockade, propranolol starting at 20 MG every 8 hours (or LA 60 daily) and follow pulse, blood pressure and response. Patient pamphlet provided to the patient on gamma knife thalamotomy or essential tremor. Continue gradual taper off topiramate. Follow-up in the office later this month
[2016-07-20 15:31] VITALS: BP 126/66
--- NOTE | 2016-07-20 16:03 | Discharge Summary ---
Visit Information Visit Dates Admission Date: 07/16/16 Discharge Date: 07/21/16 Hospital Course Course Attending Physician: FERNANDO CORCORAN MD Primary Care Physician: AMBROSIO LYNN,NEELA Stewart Hospital Course: 80/M with PMH of 5 times CABG, spinal stenosis, BPH, HTN, T2DM, GERD, kidney stones who presented to the ED complaining of fever, altered mental status, and generalize weakness for 1 day X Vitals in the ED temperature 100 and 0.5, pulse 79, respiration 18, blood pressure 138/60, saturating 96% on room air. Pertinent labs showed a white count of 16.3, H&H of 13.1 /38.3, sodium 134, normal lactic acid, troponins negative. UA: Clear urine, 25-50 RBC, 1-3 WBC, Urine hemoglobin high CT abdomen and pelvis: No acute pathology. Enlarged prostate with no signs of inflammation. Nephrolithiasis of the bilateral kidneys. No hydronephrosis of either kidney. 1. Fever Sepsis due to prostatitis: Was admitted to general medical floor. CT abdomen and pelvis was negative for an acute pathology. Patient was started on empiric antibiotics IV ceftriaxone pending blood and urine cultures. Urine cultures came back for enterococcus. Urology consult was obtained who agreed with antibiotics and recommended a total course of antibiotics for [address] also showed renal stones, hence would need ESWL in future. White count normalized on 07/20/2016 to 9.4. He remained afebrile for over 48 hours. Blood cultures were negative. Testicular ultrasound showed 2 small left simple testicular cyst and a small complex left hydrocele. Again urology recommended outpatient follow-up. His symptoms improved after medications. He was on his home dose of Flomax. Finasteride was added to his medical regimen. Recommended to continue Pyridium 2. Right foot swelling and which improved. Venous Doppler was done without DVT. X-ray of the ankle and foot done which did not show evidence of acute osteomyelitis. He was maintained on pain medications and leg elevation. 3. Diabetes mellitus: By mouth medication was held and he was started on NovoLog sliding scale. Medications comes to be resumed upon discharge. 4. Essential tremors: has ongoing tremor of the hands for > 1year. Prior treatment with antiparkinson agents failed, then treated with Primidone up to 100 mg per day, seen at [facility] where primidone was tapered off but diagnosis of essential tremor accepted. Does not recall other meds tried. Here we elected to repeat the trial of Primidone, he has gone up to 50 mg 2 tabs BID but family think tremor is worse. Neurology consult was obtained recommended to taper off primidone by 50 mg every 4 days and continue gabapentin. He was started on Propronolol 20 TID fro tremors. He should follow-up with Dr. Marin when medically stable in his office. 5. Hypertension: His blood pressure was WNL while in the hospital. His Hydralazine was stopped and continued on lisinopril. Diet Diabetic diet DVT prophylaxis Lovenox SC CODE STATUS Full code Allergies: Coded Allergies: No Known Allergies (07/16/16) Pertinent Lab Results: Laboratory Tests 07/20 07/20 1140 0624 Chemistry Sodium (137 - 145 mmol/L) 136 L Potassium (3.5 - 5.1 mmol/L) 4.2 Chloride (98 - 107 mmol/L) 101 Carbon Dioxide (22 - 30 mmol/L) 24 Anion Gap (5 - 16) 11 BUN (9 - 20 mg/dL) 11 Creatinine (0.7 - 1.2 mg/dL) 0.7 Estimated GFR (>60 ml/min) > 60 BUN/Creatinine Ratio (7 - 25 %) 15.7 Hematology CBC w Diff NO MAN DIFF REQ WBC (4.8 - 10.8 /CUMM) 9.4 RBC (4.70 - 6.10 /CUMM) 3.53 L Hgb (14.0 - 18.0 G/DL) 11.3 L Hct (42 - 52 %) 33.4 L MCV (80.0 - 94.0 FL) 94.5 H MCH (27.0 - 31.0 PG) 32.1 H RDW (11.5 - 14.5 %) 13.1 Plt Count (130 - 400 /CUMM) 170 MPV (7.4 - 10.4 FL) 8.2 Gran % (42.2 - 75.2 %) 77.8 H Lymphocytes % (20.5 - 51.1 %) 12.2 L Monocytes % (1.7 - 9.3 %) 9.0 Eosinophils % (0 - 5 %) 0.8 Basophils % (0.0 - 2.0 %) 0.2 Absolute Granulocytes (1.4 - 6.5 /CUMM) 7.3 H Absolute Lymphocytes (1.2 - 3.4 /CUMM) 1.1 L Absolute Monocytes (0.10 - 0.60 /CUMM) 0.8 H Absolute Eosinophils (0.0 - 0.7 /CUMM) 0.1 Absolute Basophils (0.0 - 0.2 /CUMM) 0 PUBS MCHC (33.0 - 37.0 G/DL) 33.9 / 0715 Chemistry Sodium (137 - 145 mmol/L) 136 L Potassium (3.5 - 5.1 mmol/L) 4.2 Chloride (98 - 107 mmol/L) 101 Carbon Dioxide (22 - 30 mmol/L) 23 Anion Gap (5 - 16) 12 BUN (9 - 20 mg/dL) 14 Creatinine (0.7 - 1.2 mg/dL) 0.7 Estimated GFR (>60 ml/min) > 60 BUN/Creatinine Ratio (7 - 25 %) 20.0 Hematology CBC w Diff NO MAN DIFF REQ WBC (4.8 - 10.8 /CUMM) 14.6 H RBC (4.70 - 6.10 /CUMM) 3.39 L Hgb (14.0 - 18.0 G/DL) 11.0 L Hct (42 - 52 %) 32.6 L MCV (80.0 - 94.0 FL) 96.1 H MCH (27.0 - 31.0 PG) 32.4 H RDW (11.5 - 14.5 %) 13.7 Plt Count (130 - 400 /CUMM) 143 MPV (7.4 - 10.4 FL) 9.1 Gran % (42.2 - 75.2 %) 82.2 H Lymphocytes % (20.5 - 51.1 %) 8.9 L Monocytes % (1.7 - 9.3 %) 8.6 Eosinophils % (0 - 5 %) 0.2 Basophils % (0.0 - 2.0 %) 0.1 Absolute Granulocytes (1.4 - 6.5 /CUMM) 12.0 H Absolute Lymphocytes (1.2 - 3.4 /CUMM) 1.3 Absolute Monocytes (0.10 - 0.60 /CUMM) 1.3 H Absolute Eosinophils (0.0 - 0.7 /CUMM) 0 Absolute Basophils (0.0 - 0.2 /CUMM) 0 PUBS MCHC (33.0 - 37.0 G/DL) 33.8 Disposition Summary Disposition Principal Diagnosis: 1. Fever /Sepsis due to prostatitis: 2. Diabetes mellitus 3. Essential tremors: Additional Diagnosis: CABG, spinal stenosis, BPH, HTN, T2DM, GERD, kidney stone Discharge Disposition: SNF Discharge Instructions General Discharge Information Code Status: Full Code Patient's Diet: Diabetic diet Patient's Activity: As tolerated with PT Follow-Up Instructions/Appts: 1. Follow up with PCP in a week upon discharge 2. Follow up with Dr. Austin. Pls call his office to make an appointment for procedure to remove the kidney stone 3. Follow up with Dr. Marin for tremors/parkinsons disease 4. Take medications as recommended. Medications at Discharge Discharge Medications: Stop taking the following medications: Hydralazine HCl (Hydralazine HCl) 10 MG TABLET ORAL THREE TIMES DAILY Continue taking these medications: Gabapentin (Gabapentin) 100 MG CAPSULE 300 Milligram ORAL THREE TIMES DAILY Lisinopril (Lisinopril) 10 MG TABLET 10 Milligram ORAL Every Day Tamsulosin HCl (Flomax) 0.4 MG CAP.ER.24H 0.4 Milligram ORAL Every Day Niacin (Niaspan) 1,000 MG TAB.ER.24H 1,000 Milligram ORAL Every Day Simvastatin (Simvastatin*) 5 MG TABLET 20 Milligram ORAL Every Day Sitagliptin Phos/Metformin HCl (Janumet 50-500 MG Tablet) 50 MG-500 MG TABLET 50-500 Milligram ORAL TWICE DAILY Aspirin (Aspirin*) 81 MG TAB.CHEW 325 Milligram ORAL Every Day Cholecalciferol (Vitamin D3) (Vitamin D) 1,000 UNIT TABLET 1 Tablet ORAL TWICE DAILY Fish Oil/Borage/Flax/Om3,6,9#1 (Beulah 3-6-9 1,200 MG Softgel) 1,200 MG CAPSULE 1,000 Milligram ORAL Every Day Multivit-Min/FA/Lycopen/Lutein (Centrum Silver Tablet) 0.4 MG-300 MCG-250 MCG TABLET 1 Tablet ORAL Every Day Start taking the following new medications: Amoxicillin/Potassium Clav (Augmentin 875-125 Tablet) 875 MG-125 MG TABLET 1 Tablet ORAL TWICE DAILY Qty = 32 No Refills Propranolol HCl (Propranolol HCl) 20 MG TABLET 20 Milligram ORAL EVERY 8 HOURS Days = 30 No Refills Phenazopyridine HCl (Phenazopyridine HCl) 100 MG TABLET 100 Milligram ORAL DAILY NEEDED as needed for urinary symptoms Days = 30 No Refills Finasteride (Finasteride) 5 MG TABLET 5 Milligram ORAL DAILY Days = 30 No Refills Oxycodone HCl/Acetaminophen (Percocet 5-325 MG Tablet) 5 MG-325 MG TABLET 1 Tablet ORAL THREE TIMES DAILY as needed for PAIN Qty = 15 No Refills The following medications have been changed: Old: Primidone (Mysoline) 50 MG TABLET 50 Milligram ORAL 4 New: Primidone (Mysoline) 50 MG TABLET 50 Milligram ORAL See Instructions Qty = 18 Instructions: TAKE THREE TIMES DAILY FOR 2 DAYS (07/22-07/23) TAKE TWO TIMES DAILY FOR 4 DAYS (07/24-07/27) TAKE ONCE DAILY FOR 4 DAYS (07/28-07/31) THEN STOP. PLEASE VISIT NEUROLOGIST BEFORE STOPPING THE MEDICATION. Copies To: AMBROSIO LYNN,NEELA Stewart
[2016-07-20] MEDS ORDERED: AUGMENTIN 875-1 EACH PO (17:58)
[2016-07-20] MEDS ORDERED: MYSOLINE50 M1 PO (18:01)
[2016-07-20 22:00] VITALS: BP 158/70
--- NOTE | 2016-07-21 06:29 | PN- Housestaff ---
NAREN LYNN,BENITA 07/21/16 0629: Subjective Follow-up For: Enterococcus UTI; prostatitis Complaints: problem urinating completely, hesitancy, burning Subjective: I followed up and examined the patient today. The patient is lying comfortably on the bed and is not in any acute distress. He did complain that he had burning micturition, hesitancy to start voiding, and a feeling of incomplete urinary voiding. Vitals have been stable overnight. No overnight issues. Review of Systems Constitutional: Reports: no symptoms. EENTM: Reports: no symptoms. Cardiovascular: Reports: no symptoms. Respiratory: Reports: no symptoms. Gastrointestinal: Reports: no symptoms. Genitourinary: Reports: see HPI. Musculoskeletal: Reports: no symptoms. Skin: Reports: no symptoms. Neurological/Psychological: Reports: no symptoms. Hematologic/Endocrine: Reports: no symptoms. Objective Last 24 Hrs of Vital Signs/I&O Vital Signs Date Time Temp Pulse Resp B/P Pulse O2 O2 Flow FiO2 Ox Delivery Rate 07/21 0820 160/80 07/21 0709 98.1 54 20 160/70 95 Room Air 07/20 2200 98.7 64 18 158/70 94 07/20 2102 64 158/70 07/20 1643 65 126/66 07/20 1531 98.3 65 20 126/66 96 04 1144 Room Air 07/20 0904 70 122/60 07/20 0904 70 122/60 07/20 0837 98.1 70 20 122/60 94 Room Air Intake & Output 07/21 1600 07/21 0800 07/21 0000 Intake Total 600 600 Output Total 500 250 Balance 100 350 Intake, IV 600 600 Number 1 Bowel Movements Output, Urine 500 250 Physical Exam General Appearance: Alert, Oriented X3, Cooperative, No Acute Distress Other Physical Findings: Physical examnination: General: [well nourished] [thin buit] [obese] patient [not] in distress Head: Normocephalic, atraumatic Eyes: Pupils normal in size, regular, reacting to light and accommodation, EOM normal Ears: B/l normal on inspection Nose: Normal on inspection Throat/mouth: [Moist] [Dry] mucosa Neck: Supple, full range of motion, no thyromegaly Heart: Regular rate, [regular] rhythm Lung: Normal breath sound bilaterally [Added sound not heard] Abd: Soft, non-tender, no distention appreciated Back: Normal range of motion Extremities: Normal knee exam bilaterally, [no] pedal edema, Distal neurovascular intact Neurologic: Alert, oriented x3, Cranial exam grossly intact, Speech is clear and coherent Skin: Warm and dry Psychiatric: Calm, cooperative, coherant, [no SI], [no HI] Current Medications: Current Medications Sig/Gilmar Start time Last Medication Dose Route Stop Time Status Admin Acetaminophen 500 MG Q6P PRN 07/16 2330 AC 07/20 PO 0631 Ampicillin Sodium/ 1,500 MG Q6H 07/17 2100 AC 07/21 Sulbactam Sodium IV 0817 Sodium Chloride 100 ML Aspirin 325 MG DAILY 07/17 1000 AC 07/21 PO 0820 Atorvastatin Calcium 20 MG 1700 07/17 1700 AC 07/20 PO 1642 Cholecalciferol 1,000 IU BID 07/17 1000 AC 07/21 PO 0819 Enoxaparin Sodium 40 MG DAILY 07/17 1000 AC 07/21 SC 0820 Finasteride 5 MG DAILY 07/20 1434 AC 07/21 PO 0819 Gabapentin 300 MG TID 07/17 1000 AC 07/21 PO 0820 Hydralazine HCl 25 MG TID 07/17 0005 DC 07/20 PO 2102 Insulin Aspart 0 TIDAC 07/17 0800 AC 07/20 SC 1510 Lisinopril 20 MG DAILY 07/21 1000 AC PO Lisinopril 10 MG DAILY 07/17 1000 DC 07/20 PO 0904 Melatonin 5 MG AT BEDTIME 07/17 2200 AC 07/20 PO 2102 Multivitamins 1 TAB DAILY 07/17 1000 AC 07/21 PO 0819 Niacin 1,000 MG AT BEDTIME 07/17 2200 AC 07/20 PO 2101 Omeprazole 20 MG DAILY AC 07/17 0700 AC 07/21 PO 0545 Oxycodone/ 1 TAB Q6P PRN 07/20 1045 AC 07/20 Acetaminophen PO 1055 Patient Medication 1 ED .STK-MED ONE 07/20 1402 DC Teaching ED 07/20 1403 Phenazopyridine HCl 100 MG DAILY NEEDED PRN 07/20 1145 AC 07/20 PO 1509 Primidone 50 MG TID 07/20 1600 AC 07/21 PO 0823 Primidone 50 MG Q6 07/17 0600 DC 07/20 PO 0631 Propranolol HCl 20 MG Q8 07/21 0808 AC PO Sodium Chloride 1,000 ML .[id number] 07/18 1600 AC 07/20 IV 2103 Tamsulosin HCl 0.4 MG DAILY 07/17 1000 AC 07/21 PO 0820 Tramadol HCl 50 MG Q6 PRN 07/18 1645 AC 07/18 PO 1724 Last 24 Hrs of Lab/Alok Results Last 24 Hrs of Labs/Mics: Laboratory Tests 07/20/16 1140: CBC w Diff NO MAN DIFF REQ, RBC 3.53 L, MCV 94.5 H, MCH 32.1 H, RDW 13.1, MPV 8.2, Gran % 77.8 H, Lymphocytes % 12.2 L, Monocytes % 9.0, Eosinophils % 0.8, Basophils % 0.2, Absolute Granulocytes 7.3 H, Absolute Lymphocytes 1.1 L, Absolute Monocytes 0.8 H, Absolute Eosinophils 0.1, Absolute Basophils 0, PUBS MCHC 33.9 Assessment/Plan Assessment: This is an 80-year-old male with past medical history of spinal stenosis, BPH, hypertension, diabetes, GERD, nephrolithiasis, CABG 5, presented with chief complaint of fever, AMS, weakness, and dysuria. Upon workup in ED he was found to have white count of 16, with max temp of 101.1. Given concern for sepsis of urological origin he was admitted to medicine floor for further workup. CT IMPRESSION: 1. Nephrolithiasis of the bilateral kidneys. No ureteral or bladder stones and no hydroureteronephrosis of either kidney or renal collecting system. 2. Normal-appearing appendix, with the tip of the appendix identified within the left hemipelvis. Foot x-ray IMPRESSION: Soft tissue swelling in the ankle and foot with marked calcific atherosclerosis. No radiographic findings of acute osteomyelitis. 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 PLAN: #Sepsis of urological origin: Prostatitis: During admission pt had fever, and white count, with possible sources being right lower extremity cellulitis versus prostatitis versus UTI. In ED patient had tender prostate on rectal exam and his RLE was noted to be more swollen, warm, tender than left leg. He states that he has a painful burning sensation upon urination which is new for him. UA shows 25-50 urine red blood cell, 1-3 white blood cell, moderate hemoglobin. Urine negative for nitrite and leukocyte esterase. Urine culture now growing 40 ,000 CFU of enterococcus susceptible to ampicillin, Macrobid, and vancomycin. Negative CXR. Negative ultrasound of the leg. Despite negative leukocyte esterase or nitrite, cannot rule out prostatitis as he has perineal pain, fever, and tenderness on prostate exam. We will continue treatment with antibiotics. Unsure of duration of treatment for prostatitis and significance of only 40,000 CFU's in urine. * Urine culture grew enterococcus, sensitive to ampicillin, the patient is currently on Unasyn * Continue Tylenol when necessary for fever * Since the patient is having hesitancy during micturition, urology consult has been placed with Dr. Austin. >> According to Dr. Austin, he can be discharged today with total 3 weeks of antibiotic, which he can take per oral. #Tremor: Patient has questionable history of Parkinson's disease. Per family, he was on primidone for years but during evaluation at [facility] clinic he was determined to not have Parkinson's and medication was discontinued. At that time patient was seen by Dr. Antonio Woodall. However, in the last month he was seen by Dr. Marin in [place] who restarted his primidone at a higher dose. Patient's family noted a worsening of tremor in the past 2 weeks as such, patient is attempting to discontinue medication on his own. He refused morning doses of primidone this AM. I visited with patient and family and educated them that acute withdrawal from medication could have serious adverse effects. His mood continues prescribed regimen until Dr. Marin came and reevaluated need for medication. * According to Dr. Marin, dose of primidone decreased to 3 times daily for 4 days and then plan to decrease by 50 mg every 4 days. * Diagnosis of Parkinson's disease has been pulled out and was placed as essential tremor and started. #T2DM * Accu-Cheks * NovoLog sliding scale * Diabetic diet * We'll hold oral hypoglycemic agents #HTN * Continue hydralazine * Continue lisinopril #GERD * Cont' omeprazole 20 mg daily #Back pain 2/2 Spinal stenosis * Continue gabapentin * Continue oxycodone Diet Diabetic diet DVT prophylaxis Lovenox SC CODE STATUS Full code Mild pain pathway Problem List: 1. Prostatitis 2. Essential tremor 3. BPH (benign prostatic hypertrophy) with urinary obstruction Pain Ratin Pain Location: low back Pain Goal: Pain 4 or less Pain Plan: percocet prn Tomorrow's Labs & Rationales: none, as the patient is being discharged today FERNANDO CORCORAN MD 07/21/16 1110: Attending MD Review Statement Attending Statement Attending MD Statement: examined this patient, discuss w/resident/PA/ROLLING MILL PLUGGER, agreed w/resident/PA/ROLLING MILL PLUGGER, reviewed EMR data (avail) Attending Assessment/Plan: 80M PMH CAD s/p CABG, spinal stenosis, BPH, HTN, T2DM, GERD, kidney stones admitted with sepsis secondary to acute prostatitis with urine cultures growing enterococcus sensitive to penicillin. Patient was spiking daily fevers until today. He has significant burning during urination, hesitancy, and difficulty initiating urination, with straining leading to fecal incontinence. He also has Parkinson's disease with increase in tremor of late. Still having discomfort with initiation of urination but improving. Afebrile, stable, tremors persist. Son at bedside. 1. Sepsis 2. Acute prostatitis 3. Enterococcal UTI 4. Dysuria 5. Essential tremor (note, patient does not have Parkinson disease, this was corrected by the son) Plan - Stable for discharge to [facility] - Continue Amoxicillin for total of 3 weeks - Continue Pyridium - Continue Flomax, Finasteride - Follow urology and neurology recommendations - Will decrease Primidone dose with plans to continue taper as an outpatient - Started Propranolol for essential tremor per neurology recommendations - Discontinue Hydralazine - Continue home medications
[2016-07-21 07:09] VITALS: BP 160/70
[2016-07-21] MEDS ORDERED: PROPRANOLOL HCL20 M1 PO (10:10)
[2016-07-21] MEDS ORDERED: PHENAZOPYRIDIN100 M3 PO (10:52)
[2016-07-21] MEDS ORDERED: PERCOCET 5-3251 EACH PO (10:52)
[2016-07-21 10:53] VITALS: BP 120/70
[2016-07-21] MEDS ORDERED: FINASTERIDE5 M1 PO (10:53)
== END 2016-07-21 11:40 | DRG 872 ==
LOC: ERH 19:40 → 2NB 21:56 → ERHI 21:56 → 2NB 23:38
PROVIDERS: Pediatrics; Student in an Organized Health Care Education/Training Program; ADMIT Internal Medicine
DX: A41.9 Sepsis, unspecified organism (principal); I11.9 Hypertensive heart disease without heart failure; N39.0 Urinary tract infection, site not specified; N41.0 Acute prostatitis; N41.9 Inflammatory disease of prostate, unspecified; B95.2 Enterococcus as the cause of diseases classified elsewhere; E06.3 Autoimmune thyroiditis; G25.0 Essential tremor; I25.10 Atherosclerotic heart disease of native coronary artery without angina pectoris; Z95.1 Presence of aortocoronary bypass graft; R33.9 Retention of urine, unspecified; N20.0 Calculus of kidney; E11.9 Type 2 diabetes mellitus without complications; Z79.84 Long term (current) use of oral hypoglycemic drugs
CPT/HCPCS: 2NBSP; 2NSBP; 36415; 73600-LT; 73620-LT; 74176; 81001; 82436; 87040; 87086; 87147; 87804; 87804-59; 93005; 93010; 97001-GP; 97116-GO; 97161-GP; 97530-GO; J0696; J1650; J2405

== ENCOUNTER → 2016-08-09 | Day surgery (SDC) | payer OTHER, MEDICARE ==
[~2016-08-09] VITALS: Ht 170.2 cm; Wt 84.4 kg
[~2016-08-09] MED LIST: ASPIRIN81 M4 PO; AUGMENTIN 875-1 EACH PO; CENTRUM SILVER1 EAC3 PO; FINASTERIDE5 M1 PO; FLOMAX0.4 M1 PO; GABAPENTIN100 M2 PO; HYDRALAZINE HCL10 M1 PO; JANUMET 50-5001 EACH PO; LISINOPRIL10 M1 PO; MYSOLINE50 M1 PO; NIASPAN1000 M1 PO; OMEGA 3-6-9 11200 MG PO; PERCOCET 5-3251 EACH PO; PHENAZOPYRIDIN100 M3 PO; PROPRANOLOL HCL20 M1 PO; SIMVASTATIN5 M2 PO; VITAMIN D1000 UNIT PO
--- NOTE | 2016-08-09 16:21 | Operative Report ---
Operative/Inv Procedure Report Surgery Date: 08/09/16 Name of Procedure: LEFT RENAL ESWL. FLUOROSCOPY Pre-Operative Diagnosis: LEFT COLIC WITH LEFT RENAL STONE Post-Operative Diagnosis: SAME Estimated Blood Loss: n/a Surgeon/Doughmaker: LILA VO MD Anesthesia: moderate sedation Complications: None Condition: Improved Operative/Procedure Note Note: The patient was taken to the operating room and placed on the ESWL table in supine position. With the patient awake and participating, timeout was performed to confirm correct identity, procedure, laterality, anesthesia, and other pertinent cade-operative information. After adequate anesthesia, the patient was positioned so that the patient's left flank was positioned over the table cut-out, overlying the dome of the treatment head. Once the patient was adequately sedated, fluoroscopy, as well as Renal ultrasound was used to locate the LEFT renal stone. Renal US confirmed the presence of the stone which measured it to be approximately 5mm MP stone. The stone was faintly visible with fluoroscopy. Renal US revealed, no hydronephrosis, and no solid tumor, and presence of the stone. The position of the stone was optimized by using fluoroscopy in AP and oblique views;placing the stone within the ESWL c-arm crosshairs. Once the stone's position was optimized, the LEFT renal E.S.W.L. was initiated at low energy level. After noting the patient's tolerance to the shockwaves, the intensitiy was ramped up to maximum level. At the end of the procedure, the left renal stone had dissintegrated. Of note, a total of 2500 shockwaves were delivered to the stone. The patient tolerated the ESWL procedure well, was awakened, then taken to recovery in satisfactory condition via stretcher. The patient was dischared home with pain medications, diet orders, and intructions to catch fragments by straining the urine. The patient to to have follow-up renal ultrasound and KUB in 1 to 2 weeks, prior to follow-up visit in my office. He will then proceed with metabolic stone work-up. Discharge Disposition: PACU CC: LILA VO MD
== END ==
LOC: STS 07:00
DX: N20.0 Calculus of kidney (principal); N23 Unspecified renal colic; E11.9 Type 2 diabetes mellitus without complications; I25.10 Atherosclerotic heart disease of native coronary artery without angina pectoris; Z79.82 Long term (current) use of aspirin
CPT/HCPCS: J2250

== ENCOUNTER → 2016-08-30 | Day surgery (SDC) | payer OTHER, MEDICARE ==
[~2016-08-30] VITALS: Ht 170.2 cm; Wt 84.4 kg
--- NOTE | 2016-08-30 14:50 | Operative Report ---
Operative/Inv Procedure Report Surgery Date: 08/30/16 Name of Procedure: CYSTOSCOPY. LEFT URETER ESWL, FLUOROSCOPY. Pre-Operative Diagnosis: LEFT URETER STONE Post-Operative Diagnosis: SAME Estimated Blood Loss: none Surgeon/Manual Machinist: LILA VO MD Anesthesia: moderate sedation Complications: NONE Operative Indication: new onset severe left flank pain and gross hematuria Operative/Procedure Note Note: The patient was taken to the operating room and placed on the ESWL table in supine position. Time out was performed, with the patient awake, to confirm identity, procedure, laterality, and other pertinent cade-operative information. After adequate anesthesia, the patient was positioned so that the left flank was placed over the ESWL table cut-out, and overlying the dome of the shockwave generator. C-arm fluroscopy, as well as renal US was used to locate the stone, and evaluate the left kidney. The stone was visible on fluroloscopy at the proximal-left ureter. Renal US confirmed mild hydronephrosis, with no additional stone seen in the left kidney. The left ureter stone was approximate 6 mm in size, and faintly visible with fluoroscopy. Using fluoroscopy, the position of the ureter stone was optimized for ESWL, using AP, and oblique views of the stone. Subsequently, E.S.W.L. was initiated at low power levels x 200 shocks. After noting the patient's tolerance to the shockwaves, the shock wave power level was quickly maximized. At the end of the procedure, the composition of the stone had changed significantly indicating the pulverization of the ureter stone. A total of 3000 shockwaves were delivered to the stone in order to achieve adequate lithotrypsy. The patient was then then placed in frog-leg position, draped and prepped in the usual surgical fashion. A 20 Czech flexible cystoscope was then inserted under direct visualization into the urethra. 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 At this point, because the patient is on aspirin, and has not been consented for the stricturotomy, endolaser being unavailable at this time, the stricturotomy will have to be discussed with the patient and planned on the later date. The cystoscope was then removed without difficulty. The patient tolerated the procedures well, was awakened, and taken to recovery in satisfactory condition via stretcher. The pt will eventually be dischared to home with pain meds, diet orders, and intructions to catch fragments with straining the urine. The patient is to have follow-up renal ultrasound and KUB (after the left renal stone is treated as well). Findings: 6mm fragment at proximal ureter; mild left hydro. On intra-op US. Discharge Disposition: PACU CC: LILA VO MD
== END ==
LOC: STS 02:24
DX: N13.2 Hydronephrosis with renal and ureteral calculous obstruction (principal); N35.9 Urethral stricture, unspecified; Z79.82 Long term (current) use of aspirin; I10 Essential (primary) hypertension; E11.9 Type 2 diabetes mellitus without complications; Z79.84 Long term (current) use of oral hypoglycemic drugs; I25.2 Old myocardial infarction
CPT/HCPCS: J0696; J2250

== ENCOUNTER 2017-08-25 15:46 | Observation (INO) | payer OTHER, MEDICARE ==
[~2017-08-25] VITALS: Ht 167.6 cm; Wt 92.5 kg
[~2017-08-25 15:46] MED LIST changes: +HYDRALAZINE HCL25 M1 PO; +PRESERVISION A1 EAC1 PO; +ZOCOR20 M1 PO
--- NOTE | 2017-08-25 16:14 | ED CARDIAC/CP/PALPITATIONS ---
History of Present Illness General Chief Complaint: Chest Pain Stated Complaint: SIB DR. GUERRERO FOR CHEST PAIN Source: patient, family, old records Exam Limitations: no limitations Vital Signs & Intake/Output Vital Signs & Intake/Output Vital Signs Date Time Temp Pulse Resp B/P B/P Pulse O2 O2 Flow FiO2 Mean Ox Delivery Rate 08/25 2349 77 144/80 08/25 2333 97.4 77 22 144/80 96 Room Air 08/25 2233 98.3 78 16 136/71 97 Room Air 08/25 1800 98.0 68 19 125/69 98 Room Air 08/25 1635 70 122/65 08/25 1612 97.2 78 20 160/80 98 Room Air ED Intake and Output 08/26 0000 08/25 1200 Intake Total Output Total 1400 Balance -1400 Output, Urine 1400 Patient 204 lb Weight Weight Reported by Patient Measurement Method Allergies Coded Allergies: No Known Allergies (07/16/16) Reconcile Medications Aspirin (Aspirin*) 325 MG TABLET 1 TAB PO DAILY HEART (Reported) Atorvastatin Calcium 40 MG TABLET 40 MG PO DAILY CAD (Reported) Cholecalciferol (Vitamin D3) (Vitamin D) 1,000 UNIT TABLET 1 TAB PO BID SUPPLIMENT (Reported) Clopidogrel Bisulfate (Plavix) 75 MG TABLET 75 MG PO DAILY CAD (Reported) Fish Oil/Borage/Flax/Om3,6,9#1 ([place] 3-6-9 1,200 MG Softgel) 1,200 MG CAPSULE 1,000 MG PO D SUPPLIMENMT (Reported) Gabapentin 100 MG CAPSULE 300 MG PO TID NEURO (Reported) Hydralazine HCl 25 MG TABLET 1 TAB PO TID BP (Reported) Lisinopril 10 MG TABLET 10 MG PO D HTN (Reported) Metoprolol Succinate 25 MG TAB 25 MG PO BID HTN (Reported) Multivit-Min/FA/Lycopen/Lutein (Centrum Silver Tablet) 0.4 MG-300 MCG-250 MCG TABLET 1 TAB PO D SUPPLIMENT (Reported) Niacin (Niaspan) 1,000 MG TAB.ER.24H 1,000 MG PO D SUPPLIMENT (Reported) Primidone (Mysoline) 50 MG TABLET 50 MG PO DAILY TREMORS (Reported) Sitagliptin Phos/Metformin HCl (Janumet 50-500 MG Tablet) 50 MG-500 MG TABLET 50-500 MG PO BID DM (Reported) Tamsulosin HCl (Flomax) 0.4 MG CAP.ER.24H 0.4 MG PO D PROSTATE (Reported) Vit C/E/Zn/Coppr/Lutein/Zeaxan (Preservision Areds 2 Softgel) 250-200-40 CAPSULE 1 SGL PO BID SUPPLEMENT (Reported) Triage Note: TRIAGE: PT IN [place] FOR EKG AND EVAL BY ZURDO MCMANUS PRIOR TO TRIAGE. REPORTS HE WAS REFERRED TO ER BY BILLPOSTER DR GUERRERO. STATES HE HAD HEART CATHETERIZATION ON MONDAY AT [facility] FOR "[facility]" AND WAS DISCHARGED YESTERDAY. STATES TODAY WAS HIS FOLLOW UP APPOINTMENT AND "HE GAVE ME THE TEST AND WASN'T SURE IF IT WAS HEART SPASM, ELEVATED ENZYMES OR HEART ATTACK". DESCRIBES S/S OF A DISCOMFORT IN HIS CHEST WHICH HE RATES 4/10 AND IS DULL IN NATURE. STATES ONSET YESTERDAY AND CONSTANT SINCE ONSET. PT TAKEN FROM [place] TO [facility] FOR FURTHER EVAL AND TREATMENT. WHEN ASKED ABOUT MEDICAL HISTORY ASIDE FROM REVEALING THAT HE HAS PARKINSONS AND AFOREMENTIONED HISTORY PATIENT RESPONDS IT'S "TOO MUCH". MEDICAL HISTORY NOT VERIFIED AT TRIAGE AT THIS TIME. Triage Nurses Notes Reviewed? yes Onset: Abrupt Duration: day(s): (2), better, constant Timing: recent history Quality/Severity: moderate, aching Location: central Radiation: no radiation Activities at Onset: none Prior Chest Pain/Card Workup: cardiac cath Nitro Today/Relief: no nitro taken today Aspirin Today: no aspirin today Associated Symptoms: denies HPI: 81-year-old male h/o cad, cabg, htn, hld, recent cath 4 days ago with 1 stent presents to ER for evaluation complaining of sternal nonradiating chest pain 4 out of 10. His symptoms began yesterday and is radiating to his neck 7 out of 10. The patient was discharged from the hospital 2 days ago after undergoing angioplasty with stents at [facility]. He saw his patient liaison Dr. guerrero today who referred him to the ER. He denies any associated shortness of breath abdominal pain nausea vomiting diarrhea. He did not take his aspirin he is currently on Plavix as well. No leg swelling abdominal pain fever chills cough. (Brayan RENNER,Johnie) Past History Travel History Traveled to [place] past 21 day No Medical History Any Pertinent Medical History? see below for history Neurological: Parkinson's disease, ESSENTIAL TREMORS EENT: NONE Cardiovascular: CAD, hypertension Respiratory: NONE Gastrointestinal: NONE Hepatic: NONE Renal: NONE Musculoskeletal: NONE Psychiatric: NONE Endocrine: diabetes, Claudio's thyroiditis Blood Disorders: NONE Cancer(s): NONE History of MRSA: No History of VRE: No History of CDIFF: No Surgical History Surgical History: CABG Psychosocial History Who do you live with Spouse Services at Home None What is your primary language Montenegrin Family History Hx Contributory? No (Johnie Zepeda) Review of Systems Review of Systems Constitutional: Reports: see HPI. Comments Review of systems: See HPI, All other systems negative. Constitutional, no chills no fever, HEENT: no sore throat no congestion Cardiovascular: chest pain , no palpitation Skin: no rashes, no change in skin Respiratory: No dyspnea no cough no sputum GI: No nausea no vomiting, no diarrhea, : No dysuria Muscle skeletal: No joint pain, no back pain, no neck pain, Neurologic: , no headache Psych: No stress Heme/endocrine: No bruising (Johnie Zepeda) Physical Exam Physical Exam General Appearance: well developed/nourished, alert, awake Cardiovascular: regular rate/rhythm Comments: Well-developed well-nourished person in no acute distress HEENT: Normal EENT exam; PERRL, EOMI, HEAD is atraumatic. moist mucous membranes. Neck: Supple, normal range of motion Back: Full range of motion Cardiovascular: Regular rate and rhythms no murmurs rubs or gallops, normal JVP Respiratory: Chest nontender.There were no bony deformities, no asymmetry. No respiratory distress. Patient speaking in full complete sentences. Breath sounds clear to auscultation bilaterally: NO W/R/R Abdomen: Soft, nontender nondistended, no appreciable organomegaly. Normal bowel sounds. No rebound/guarding, Extremity: No edema, full range of motion of extremities Neuro: Alert oriented x3, motor sensory normal, There were no obvious focal neurologic abnormalities. Skin: No appreciable rash on exposed skin, skin is warm and dry. Psych: Mood and affect is normal, memory and judgment is normal. Core Measures ACS in differential dx? Yes CVA/TIA Diagnosis No Sepsis Present: No Sepsis Focused Exam Completed? No (Johnie Zepeda) Progress Differential Diagnosis: AMI, aortic dissection, atrial fibrillation, CHF/pulm edema, costochondritis, pulmonary embolism, PVCs/PACs Plan of Care: Orders Procedure Date/time Status Nothing by Mouth 08/26 B Active TROPONIN LEVEL 08/26 06 Active BASIC ELECTROLYTES PLUS BUN&CR 08/26 06 Active EKG 08/26 0600 Active TROPONIN LEVEL 08/25 2355 Complete EKG 08/25 2355 Active Pathway - chart 08/25 2351 Active Turn and Reposition 08/25 233 Active Skin Integrity Protocol 08/25 2336 Active Vital Signs 08/25 225 Active Teach/Educate 08/25 2257 Active Pain Treatment and Response 08/25 2257 Active Nutritional Intake, Monitor 08/25 2257 Active Isolation 08/25 2257 Active Intake & Output 08/25 2257 Active Patient Care Conference 08/25 2257 Active Activity/Ambulation 08/25 2257 Active Saline Lock 08/[address] in observation 08/25 2109 Active Misc Message 08/25 2109 Active ED Holding Orders 08/25 2109 Active Vital Signs 08/25 2109 Active Code Status 08/25 2109 Active Patient Data 08/25 2055 Active TROPONIN LEVEL 08/25 1900 Complete CREATINE PHOSPHOKINASE 08/25 1900 Complete EKG 08/25 1738 Active Add-on Test (ER Only) 08/25 1735 Active Intake & Output 08/25 1631 Active CREATINE PHOSPHOKINASE 08/25 1610 Complete Telemetry/Dermatology Procedural Physician 08/25 1605 Active TROPONIN LEVEL 08/25 1548 Complete COMPREHENSIVE METABOLIC PANEL 08/25 1548 Complete CBC WITHOUT DIFFERENTIAL 08/25 1548 Complete EKG 08/25 1548 Active House Staff 08/25 UNK Active VTE Mechanical Prophylaxis 08/25 UNK Active ECHOCARDIOGRAM 08/25 UNK Active Current Medications Sig/[place] Start time Last Medication Dose Stop Time Status Admin Aspirin 325 MG DAILY 08/26 1000 AC (Aspirin) Atorvastatin Calcium 40 MG DAILY 08/26 1000 AC (Lipitor) Clopidogrel Bisulfate 75 MG DAILY 08/26 1000 AC (Plavix) Gabapentin 300 MG TID 08/26 999 AC (Neurontin) Lisinopril 10 MG DAILY 08/26 1000 AC (Prinivil) Metoprolol Tartrate 25 MG BID 08/26 999 AC (Lopressor) Primidone 50 MG DAILY 08/26 999 AC (Mysoline 50MG. Tablet) Tamsulosin HCl 0.4 MG DAILY 02/10 1000 AC (Flomax) Heparin Sodium 5,000 UNIT Q8 08/26 0600 AC (Porcine) Acetaminophen 500 MG Q6P PRN 08/25 2345 AC 08/26 (Tylenol) 0004 Acetaminophen 1,000 MG Q6P PRN 08/25 234 AC (Ofirmev) N/A 1 UNIT (No Carrier) Nitroglycerin 0.5 GM Q6 PRN 08/25 2315 AC (Nitro-Bid) Laboratory Tests 08/25/17 2351: Troponin I 1.80 *H 08/25/17 1755: Creatine Kinase 139, Troponin I 1.72 *H 08/25/17 1610: Anion Gap 14, Estimated GFR > 60, BUN/Creatinine Ratio 24.3, Glucose 132 H, Calcium 9.1, Total Bilirubin 0.2, AST 37, ALT 49, Alkaline Phosphatase 110, Creatine Kinase 165, Troponin I 1.75 *H, Total Protein 7.5, Albumin 4.1, Globulin 3.4, Albumin/Globulin Ratio 1.2, CBC w Diff NO MAN DIFF REQ, RBC 3.95 L, MCV 94.5 H, MCH 31.3 H, MCHC 33.2, RDW 13.9, MPV 8.5, Gran % 61.0, Lymphocytes % 24.6, Monocytes % 11.6 H, Eosinophils % 2.7, Basophils % 0.1, Absolute Granulocytes 4.0, Absolute Lymphocytes 1.6, Absolute Monocytes 0.8 H, Absolute Eosinophils 0.2, Absolute Basophils 0 Labs ordered old records reviewed patient medicated aspirin and nitroglycerin with resolution of pain. Patient seen and evaluated by Dr. NEGRETE WHO AGREES WITH PLAN 1730 patient remains asymptomatic AcPACED RHYTHM on the monitor I discussed with him and his family his lab results and elevated troponin. DR NEGRETE SPOKE WITH DR GUERRERO -he would like a CK level and repeat troponin he states that the patient had an elevated troponin going into the An Employee [employer] And. 08/25/2017 5:57:05 PM I discussed with the patient at least all his lab results and his son he remains asymptomatic no pain presently they are in agreement with plan. i spoke with dr guerrero regarding repeat ck and troponins, he is in agreement with tele obs, no heparin at this time, pt remains in nad no pain at present case d/w dr ledbetter will place in tele obs Diagnostic Imaging: Viewed by Me: Radiology Read. Discussed w/RAD: Radiology Read. Radiology Impression: PATIENT: EMILY SCHAFFER SR PRESENT AGE: 81 PATIENT ACCOUNT NO: [id number] : 33 LOCATION: [facility] ORDERING PHYSICIAN: Johnie RENNER SERVICE DATE: 08/25/171605 EXAM TYPE: RAD - XRY-PORTABLE CHEST XRAY EXAMINATION: XR PORTABLE CHEST CLINICAL INFORMATION: Acute chest syndrome. Recent stent placement. COMPARISON: 2017 TECHNIQUE: Portable frontal view of the chest was obtained. FINDINGS: This radiograph acquired with slight apical lordotic positioning. Lungs are symmetrically expanded and grossly clear. No pulmonary edema, consolidation or pleural effusion. Cardiac silhouette is mildly enlarged and there is prominent mediastinal fat. Sternotomy wires are intact. Dual-chamber cardiac pacemaker in place. The visualized bones are intact. IMPRESSION: Cardiomegaly. No acute cardiopulmonary findings compared to 08/20/2017. DICTATED BY: Jacobo Ortiz MD DATE/TIME DICTATED:08/25/171632 WEB MARKETING ANALYST:ADAMARIS DATE/TIME TRANSCRIBED:08/25/171632 CONFIDENTIAL, DO NOT COPY WITHOUT APPROPRIATE AUTHORIZATION. <Electronically signed in Other Vendor System> SIGNED BY: Jacobo Ortiz MD 08/25/171637 Initial ED EKG: PACED AT 80, NO ACUTE ST SEG CHANGES, NORMAL RHYTHM Prior EKG: unchanged Rhythm Strip: PACED RHYTHM (Johnie Zepeda) Departure Departure Time of Disposition: 2053 Disposition: STILL A PATIENT Condition: Stable Clinical Impression Primary Impression: Chest pain Referrals: Leon LYNN,Brian Stewart (PCP/Family) Departure Forms: Customer Survey General Discharge Information Observation Note Spoke With: Josué Ledbetter MD Place Patient In: Non-ED OBS Care Area Rationale for Observation: My rational for observation is as follows [cardiology consultation labs turn troponin premature discharge would BE medically harmful given patient's recent catheterization and stent (Johnie Zepeda) PA/CORPORATE ACCOUNT EXECUTIVE Co-Sign Statement Statement: ED Attending supervision documentation- [x] I saw and evaluated the patient. I have also reviewed all the pertinent lab results and diagnostic results. I agree with the findings and the plan of care as documented in the PA's/CORPORATE ACCOUNT EXECUTIVE's documentation. 08/25/17, 19:55... pt with + troponin after cardiac cath, but also nitro responsive chest pain... pt merits serial trops/ekg/monitoring to ensure safety. [] I have reviewed the ED Record and agree with the PA's/CORPORATE ACCOUNT EXECUTIVE's documentation. [] Additions or exceptions (if any) to the PAs/CORPORATE ACCOUNT EXECUTIVE's note and plan are summarized below: [] (Oscar LYNN,Rafael Henry) Critical Care Note Critical Care Note Critical Care Time: 30-74 min (Johnie Zepeda) Critical Care Note Critical Care Time: 30-74 min (Oscar LYNN,Rafael Henry)
[2017-08-25 16:32] LABS: ABSOLUTE BASOPHIL COUNT 0 /CUMM (0.0-0.2); ABSOLUTE EOSINOPHIL COUNT 0.2 /CUMM (0.0-0.7); ABSOLUTE LYMPH COUNT 1.6 /CUMM (1.2-3.4); ABSOLUTE MONOCYTE COUNT 0.8 /CUMM (0.10-0.60); BASOPHIL % 0.1 % (0.0-2.0); EOSINOPHIL % 2.7 % (0-5); HEMATOCRIT 37.3 % (42-52); MEAN CORPUSCULAR HGB 31.3 PG (27.0-31.0); MEAN CORPUSCULAR HGB CONC 33.2 G/DL (33.0-37.0); MEAN CORPUSCULAR VOLUME 94.5 FL (80.0-94.0); MEAN PLATELET VOLUME 8.5 FL (7.4-10.4); PLATELET COUNT 180 /CUMM (130-400); RBC DISTRIBUTION WIDTH 13.9 % (11.5-14.5); RED BLOOD CELL CT 3.95 /CUMM (4.70-6.10); WHITE BLOOD CELL COUNT 6.6 /CUMM (4.8-10.8)
--- NOTE | 2017-08-25 16:38 | RADIOLOGY REPORT ---
EXAMINATION: XR PORTABLE CHEST CLINICAL INFORMATION: Acute chest syndrome. Recent stent placement. COMPARISON: 08/20/2017 TECHNIQUE: Portable frontal view of the chest was obtained. FINDINGS: This radiograph acquired with slight apical lordotic positioning. Lungs are symmetrically expanded and grossly clear. No pulmonary edema, consolidation or pleural effusion. Cardiac silhouette is mildly enlarged and there is prominent mediastinal fat. Sternotomy wires are intact. Dual-chamber cardiac pacemaker in place. The visualized bones are intact. IMPRESSION: Cardiomegaly. No acute cardiopulmonary findings compared to 08/20/2017.
[2017-08-25] MEDS ORDERED: PLAVIX75 M1 PO (20:26)
[2017-08-25] MEDS ORDERED: ATORVASTATIN CA40 M1 PO (20:28)
[2017-08-25] MEDS ORDERED: METOPROLOL SUCC25 M1 PO (20:29)
--- NOTE | 2017-08-25 21:49 | History & Physical ---
Tre Wilkinson MD 08/25/17 6935: General Information and HPI MD Statement: I have seen and personally examined EMILY SCHAFFER SR and documented this H&P. The patient is a 81 year old M who presented with a patient stated chief complaint of [chest pressure]. Source of Information: patient, old records Exam Limitations: no limitations History of Present Illness: Patient is an 81-year-old male with PMH significant for CAD status post CABG, HTN, bradycardia status post pacemaker placement IDDM, BPH, Parkinson's disease, renal calculi who presents today after angioplasty with 2 stents placed referred into the ED by his worm farmer Dr. Vazquez. On the first day after the procedure the patient states that he was short of breath, which resolved. However today, on the day of admission, he reports intermittent discomfort described as a substernal mild pressure like sensation. He also reports 2 instances of more severe 7/10 dull pain beginning in the sternal chest and radiating up to the jaw, these episodes lasted only a few minutes. Neither the pressure-like sensation on the pain was associated with exertion. He has not had shortness of breath in the last day. He denies any palpitations, diaphoresis, lightheadedness, dizziness, loss of consciousness, nausea, vomiting. He currently reports an 8/10 frontal headache which he attributes to not having a nor drank much today. Allergies/Medications Allergies: Coded Allergies: No Known Allergies (07/16/16) Home Med list Aspirin (Aspirin*) 325 MG TABLET 1 TAB PO DAILY HEART (Reported) Atorvastatin Calcium 40 MG TABLET 40 MG PO DAILY CAD (Reported) Cholecalciferol (Vitamin D3) (Vitamin D) 1,000 UNIT TABLET 1 TAB PO BID SUPPLIMENT (Reported) Clopidogrel Bisulfate (Plavix) 75 MG TABLET 75 MG PO DAILY CAD (Reported) Fish Oil/Borage/Flax/Om3,6,9#1 ([place] 3-6-9 1,200 MG Softgel) 1,200 MG CAPSULE 1,000 MG PO D SUPPLIMENMT (Reported) Gabapentin 100 MG CAPSULE 300 MG PO TID NEURO (Reported) Hydralazine HCl 25 MG TABLET 1 TAB PO TID BP (Reported) Lisinopril 10 MG TABLET 10 MG PO D HTN (Reported) Metoprolol Succinate 25 MG TAB 25 MG PO BID HTN (Reported) Multivit-Min/FA/Lycopen/Lutein (Centrum Silver Tablet) 0.4 MG-300 MCG-250 MCG TABLET 1 TAB PO D SUPPLIMENT (Reported) Niacin (Niaspan) 1,000 MG TAB.ER.24H 1,000 MG PO D SUPPLIMENT (Reported) Nitroglycerin 0.4 MG TAB.SUBL 1 TAB SL AD chest pain 1st sign of attack; repeat every 5 min until relief; if pain persists after 3 tabs in 15 min, prompt medical att. Primidone (Mysoline) 50 MG TABLET 50 MG PO DAILY TREMORS (Reported) Sitagliptin Phos/Metformin HCl (Janumet 50-500 MG Tablet) 50 MG-500 MG TABLET 50-500 MG PO BID DM (Reported) Tamsulosin HCl (Flomax) 0.4 MG CAP.ER.24H 0.4 MG PO D PROSTATE (Reported) Vit C/E/Zn/Coppr/Lutein/Zeaxan (Preservision Areds 2 Softgel) 250-200-40 CAPSULE 1 SGL PO BID SUPPLEMENT (Reported) Past History Travel History Traveled to [place] past 21 day No Medical History Neurological: Parkinson's disease, ESSENTIAL TREMORS EENT: NONE Cardiovascular: CAD, hypertension, myocardial infarction Respiratory: NONE Gastrointestinal: NONE Hepatic: NONE Renal: NONE Musculoskeletal: NONE Psychiatric: NONE Endocrine: diabetes, Claudio's thyroiditis Blood Disorders: NONE Cancer(s): NONE History of MRSA: No History of VRE: No History of CDIFF: No Surgical History Surgical History: CABG Past Family/Social History Family History Relations & Conditions if any MOTHER Diabetes mellitus (DM) FATHER Diabetes mellitus (DM) FH: DC (myocardial infarction) Psychosocial History Services at Home: None Primary Language: Indonesian Smoking Status: Former Smoker (10-15 pack years) ETOH Use: occasional use Illicit Drug Use: denies illicit drug use Functional Ability Ambulation: cane, walker Review of Systems Review of Systems Constitutional: Denies: chills, diaphoresis, fever, malaise. EENTM: Denies: blurred vision, double vision, visual changes. Cardiovascular: Reports: chest pain. Denies: orthopena, palpitations, peripheral edema. Respiratory: Reports: short of breath. Denies: cough, sputum production. Genitourinary: Reports: no symptoms. Musculoskeletal: Reports: no symptoms. Skin: Reports: no symptoms. Neurological/Psychological: Reports: headache. Exam & Diagnostic Data Last 24 Hrs of Vital Signs/I&O Vital Signs Date Time Temp Pulse Resp B/P B/P Pulse O2 O2 Flow FiO2 Mean Ox Delivery Rate 08/25 2349 77 144/80 08/25 2333 97.4 77 22 144/80 96 Room Air 08/25 2233 98.3 78 16 136/71 97 Room Air 08/25 1800 98.0 68 19 125/69 98 Room Air 08/25 1635 70 122/65 08/25 1612 97.2 78 20 160/80 98 Room Air Intake & Output 08/26 0800 08/26 0000 08/25 1600 Intake Total Output Total 1400 Balance -1400 Output, Urine 1400 Patient 204 lb Weight Weight Reported by Patient Measurement Method Physical Exam General Appearance Alert, Oriented X3, Cooperative, No Acute Distress Skin Temp/Moisture Exam: Warm/Dry HEENT Atraumatic, PERRLA, EOMI, Mucous Membr. moist/pink Neck Supple, No JVD Cardiovascular Regular Rate, Normal S1, Normal S2, midline surgical scar on the chest, pacemaker palpable on the L upper chest Lungs diminished breath sounds Abdomen Normal Bowel Sounds, Soft, No Tenderness Neurological Normal Speech, Strength at 5/5 X4 Ext, Normal Tone, Sensation Intact Extremities No Clubbing, No Cyanosis, No Tenderness/Swelling Vascular Normal Pulses, Pulses Symmetrical Last 24 Hrs of Labs/Alok: Laboratory Tests 08/25/17 2351: Troponin I 1.80 *H 08/25/17 1755: Creatine Kinase 139, Troponin I 1.72 *H 08/25/17 1610: Anion Gap 14, Estimated GFR > 60, BUN/Creatinine Ratio 24.3, Glucose 132 H, Calcium 9.1, Total Bilirubin 0.2, AST 37, ALT 49, Alkaline Phosphatase 110, Creatine Kinase 165, Troponin I 1.75 *H, Total Protein 7.5, Albumin 4.1, Globulin 3.4, Albumin/Globulin Ratio 1.2, CBC w Diff NO MAN DIFF REQ, RBC 3.95 L, MCV 94.5 H, MCH 31.3 H, MCHC 33.2, RDW 13.9, MPV 8.5, Gran % 61.0, Lymphocytes % 24.6, Monocytes % 11.6 H, Eosinophils % 2.7, Basophils % 0.1, Absolute Granulocytes 4.0, Absolute Lymphocytes 1.6, Absolute Monocytes 0.8 H, Absolute Eosinophils 0.2, Absolute Basophils 0 Diagnostic Data EKG Results ventricular pacing, HR 70, QTc 488 CXR Results Cardiomegaly. No acute cardiopulmonary findings Assessment/Plan Assessment: Patient is an 81-year-old male with PMH significant for CAD status post CABG, HTN, bradycardia status post pacemaker placement, IDDM, BPH, Parkinson's disease , renal calculi who presents today as after angioplasty with 2 stents placed referred into the ED by his worm farmer Dr. Sky. After the procedure he had shortness of breath for one day which has resolved, he also had intermittent chest pressure and to episodes of substernal chest pain radiating to the jaw. During the angioplasty he had troponin level of 2.0, troponin on presentation was 1.75, we are likely catching this value on a downward trend. However given patient's symptoms of atypical chest pain in the setting of recent stent placement and significant cardiac history he must rule out ACS as a result of stent occlusion. Problem list #Chest pain, rule out ACS/stent occlusion #History of CAD, HTN, IDDM, Parkinson's disease, BPH Plan -Place in telemetry observation -Continuous telemetry monitoring -Serial troponin and EKG -Echocardiogram -Cardiology consult with Dr. Vazquez in the morning -Accu-Cheks every 6 hours and nothing by mouth insulin sliding scale -Topical nitroglycerin as needed for chest pain -Continue home medications including aspirin, Plavix, gabapentin, lisinopril, metoprolol, atorvastatin, tamsulosin, primidone -Nothing by mouth pending cardiology evaluation -DVT prophylaxis: Subcutaneous Lovenox, ALPS -CODE STATUS: Full code As Ranked By This Provider Problem List: 1. Chest pain Core Measures/Misc (04/02) Acute Coronary Syndrome ACS Diagnosis: No Congestive Heart Failure Congestive Heart Failure Diagnosis No Cerebrovascular Accident CVA/TIA Diagnosis: No VTE (View Protocol) VTE Risk Factors VTE (Previous) No Mechanical VTE Prophylaxis d/t N/A MechProphylax Ordered No VTE Pharm Prophylaxis d/t NA PharmProphylax ordered Sepsis (View protocol) Sepsis Present: No Jean LYNN,Gio 08/26/17 0253: Resident Review Statement Resident Statement: examined this patient, discussed with video editing intern Other Findings: 81-year-old gentleman with a significant cardiac past medical history including status post CABG, PPM due to symptomatic bradycardia, hypertension, recent 2 stent placement at [facility] on August 22 after he had presented to [place] ED with NSTEMI, is now referred to the emergency department by his worm farmer Dr. Davidson for further evaluation of chest pressure. Patient was at his worm farmer's office today and and dosed substernal chest pressure with some intermittent radiation to his neck and jaw area. He is currently on dual antibiotic therapy. Impression * Chest pain in the setting of recent stent placement is concerning for possible stent thrombosis. Over his chest pain seems to be intermittent and was chest pain-free when interviewed by the house staff team. Is also noted that he is compliant with his newly started dual antiplatelet therapy with aspirin and Plavix. His troponin was reported to be 2.0 at the peak prior to his stent placement, now his level was 1.754 by 1.72. Less likely this is a new DC. * History of chronic diseases: CAD status post CABG and stent placement, hypertension. Plan Place nothing by mouth for now Placing telemetry observation for close cardiac monitoring for arrhythmias We'll continue to trend serial troponin and EKG We'll continue essential cardiac meds including aspirin, Plavix, metoprolol and statin Echocardiogram tomorrow morning Awaiting further cardiology recommendation from Dr. Jose Daniel Lewis MD, [facility] 08/26/17 0552: Attending MD Review Statement Attending Statement Attending MD Statement: examined this patient, discuss w/resident/PA/FIRE PREVENTION CHIEF, agreed w/resident/PA/FIRE PREVENTION CHIEF, reviewed images, amended to note Attending Assessment/Plan: 81 yo M with h/o CAD s/p CABG, bradycardia s/p PPM, Parkinson's disease, HTN, T2DM, spinal stenosis, was seen in [place] ER on Aug 20 for chest pain - NSTEMI , transferred to [facility] for cardiac cath. He states he had 2 stents placed and was discharged on Aug 23. His worm farmer is Dr. Vazquez. For the past 2 days, he reports intermittent substernal chest pressure and at times this radiates to his neck/ jaw region, not associated with dyspnea, palpitations or lightheadedness. Dr. Vazquez asked him to come to ER for further evaluation. He is currently chest pain free. Per records, patient's troponin peaked at ~ 2.0 during most recent cardiac event. Vitals stable. Labs: macrocytic anemia, glucose 132, troponin 1.75 --> 1.72, CK 165 (please note this is not a CK-MB fraction). CXR: cardiomegaly, no acute findings. EKG: Paced. No echo report available in our system. Assessment and plan: 1. Substernal chest pain with elevated troponin in a patient with recent NSTEMI s/p stent placement, concerning for in-stent thrombosis. Troponin elevation could be residual from recent cardiac event. 2. CAD s/p CABG 3. Essential hypertension - 23 hour observation on Telemetry - Monitor for arrhythmias - Serial EKG and troponin until peak - Obtain Echo cardiogram - Cardio consult (Dr. Vazquez) - Hold off on IV heparin for now per cardio recs. - If patient has recurrent chest pain or troponin keeps rising, will consider IV heparin - Keep NPO in anticipation for possible need for cardiac cath - Nitro paste topical for chest pain - Continue aspirin, plavix, metoprolol and statin. DVT ppx Lovenox. Full code. Observation Initial Note - I have personally examined EMILY SCHAFFER SR on 08/26/17 at 0553. The disposition of EMILY SCHAFFER SR is uncertain at this time and before a determination can be made, he requires a period of observation for the following reasons [Chest pain, elevated troponin, recent CAD with stent]
[2017-08-25] MEDS ORDERED: ASPIRIN325 M2 PO (22:58)
[2017-08-25 23:33] VITALS: BP 144/80
[2017-08-26 06:35] VITALS: BP 152/70
--- NOTE | 2017-08-26 09:16 | PN-Observation ---
See Addendum Observation Note Observation Note _ I have personally examined EMILY SCHAFFER SR. him disposition is uncertain at this time. Before a determination can be made, he requires continued observation for the following reasons [chest pain]. Assessment/Plan Assessment: Patient is an 81-year-old male with PMH significant for CAD status post CABG, HTN, bradycardia status post pacemaker placement, IDDM, BPH, Parkinson's disease , renal calculi who presents today as after angioplasty with 2 stents placed referred into the ED by his international guest coordinator Dr. Syk. After the procedure he had shortness of breath for one day which has resolved, he also had intermittent chest pressure and to episodes of substernal chest pain radiating to the jaw. During the angioplasty he had troponin level of 2.0, troponin on presentation was 1.75, we are likely catching this value on a downward trend. However given patient's symptoms of atypical chest pain in the setting of recent stent placement and significant cardiac history he must rule out ACS as a result of stent occlusion. Today, patient's chest pain resolved. Trops decreasing. CK MB negative indicating no re-infarcation. Seen by Dr. Vazquez and cleared for discharge chemo on sublingual nitroglcerin PRN. Patient is to go to [facility] if he has repeat episodes of chest pain per Dr. Vazquez. Problem list #Chest pain, rule out ACS/stent occlusion #History of CAD, HTN, IDDM, Parkinson's disease, BPH Plan -Place in telemetry observation -Continuous telemetry monitoring -Serial troponin and EKG -Accu-Cheks every 6 hours and nothing by mouth insulin sliding scale -Topical nitroglycerin as needed for chest pain -Continue home medications including aspirin, Plavix, gabapentin, lisinopril, metoprolol, atorvastatin, tamsulosin, primidone -Diet restarted today -DVT prophylaxis: Subcutaneous Lovenox, ALPS -CODE STATUS: Full code -Dispo: discharged home with nitroglycerin SL for chest pain PRN, to follow up closely with cardiology and pcp Problem List: 1. Chest pain Subjective Follow-up For: Chest pain Subjective: Patient was seen and examined today. Patient denies chest pain at this time. Patient denies any palpitations, shortness of breath, dizziness, lightheadedness , nausea/vomiting, abdominal pain, dysuria/hematuria. Patient tolerated his meals today. Patient's son was at bedside and the plan was discussed with him by Dr. Vazquez. No acute events overnight. Review of Systems Constitutional: Reports: no symptoms. Cardiovascular: Reports: no symptoms. Respiratory: Reports: no symptoms. Gastrointestinal: Reports: no symptoms. Musculoskeletal: Reports: no symptoms. Objective Last 24 Hrs of Vital Signs/I&O Vital Signs Date Time Temp Pulse Resp B/P B/P Pulse O2 O2 Flow FiO2 Mean Ox Delivery Rate 08/26 926 69 152/70 08/26 926 69 152/70 08/26 925 69 152/70 08/26 799 94 Room Air 08/26 0635 97.8 66 20 152/70 94 Room Air 08/25 2349 77 144/80 08/25 2333 97.4 77 22 144/80 96 Room Air 08/25 2233 98.3 78 16 136/71 97 Room Air 08/25 1800 98.0 68 19 125/69 98 Room Air 08/25 1635 70 122/65 08/25 1612 97.2 78 20 160/80 98 Room Air Intake & Output 08/26 1600 08/26 0800 08/26 0000 Intake Total 200 Output Total 900 1400 Balance -700 -1400 Intake, Oral 200 Number 0 Bowel Movements Output, Urine 900 1400 Patient 204 lb Weight Weight Reported by Patient Measurement Method Physical Exam General Appearance: Alert, Oriented X3, Cooperative, No Acute Distress Skin Temp/Moisture Exam: Warm/Dry HEENT: Atraumatic, Mucous Membr. moist/pink Cardiovascular: Regular Rate, Normal S1, Normal S2 Lungs: Normal Air Movement Abdomen: Normal Bowel Sounds, Soft, No Tenderness Extremities: No Clubbing, No Cyanosis, No Edema, Normal Pulses, No Tenderness/ Swelling Current Medications: Current Medications Sig/[place] Start time Last Medication Dose Route Stop Time Status Admin Acetaminophen 500 MG .STK-MED ONE 08/26 0001 DC PO 08/26 0002 Acetaminophen 500 MG Q6P PRN 08/25 2344 AC 08/26 PO 0004 Acetaminophen 1,000 MG Q6P PRN 08/25 2344 AC N/A 1 UNIT IV Aspirin 325 MG DAILY 08/26 1000 AC 08/26 PO 0926 Aspirin 0 .STK-MED ONE 08/25 1632 DC PO Aspirin 81 MG ONCE ONE 08/25 1615 DC 08/25 PO 08/25 1616 1628 Atorvastatin Calcium 40 MG 1700 08/26 1700 AC PO Atorvastatin Calcium 40 MG DAILY 08/26 1000 DC PO Clopidogrel Bisulfate 75 MG DAILY 08/26 1000 AC 08/26 PO 926 Gabapentin 300 MG TID 08/26 1000 AC 08/26 PO 926 Heparin Sodium 5,000 UNIT Q8 08/26 0600 AC 08/26 (Porcine) SC 0557 Insulin Human Regular 0 Q6 08/26 599 AC SC Lisinopril 10 MG DAILY 08/26 1000 AC 08/26 PO 926 Metoprolol Tartrate 25 MG BID 08/26 1000 DC PO Metoprolol Tartrate 25 MG BID 08/26 1000 AC 08/26 PO 926 Metoprolol Tartrate 25 MG ONCE ONE 08/25 2314 DC 08/25 PO 08/25 231 2349 Nitroglycerin 0.5 GM Q6 PRN 08/25 231 AC TOP Nitroglycerin 0 .STK-MED ONE 08/25 1620 DC SL Nitroglycerin 0.4 MG ONCE ONE 08/25 161 DC 08/25 SL 08/25 161 1620 Primidone 50 MG DAILY 08/26 1000 AC 08/26 PO 926 Tamsulosin HCl 0.4 MG DAILY 08/26 1000 AC 08/26 PO 09 Last 24 Hrs of Labs/Mics: Laboratory Tests 08/26/17 0641: Anion Gap 10, Estimated GFR > 60, BUN/Creatinine Ratio 18.6, Troponin I 1.40 *H 08/25/17 2351: Troponin I 1.80 *H 08/25/17 1755: Creatine Kinase 139, Troponin I 1.72 *H 08/25/17 1610: Anion Gap 14, Estimated GFR > 60, BUN/Creatinine Ratio 24.3, Glucose 132 H, Calcium 9.1, Total Bilirubin 0.2, AST 37, ALT 49, Alkaline Phosphatase 110, Creatine Kinase 165, Troponin I 1.75 *H, Total Protein 7.5, Albumin 4.1, Globulin 3.4, Albumin/Globulin Ratio 1.2, CBC w Diff NO MAN DIFF REQ, RBC 3.95 L, MCV 94.5 H, MCH 31.3 H, MCHC 33.2, RDW 13.9, MPV 8.5, Gran % 61.0, Lymphocytes % 24.6, Monocytes % 11.6 H, Eosinophils % 2.7, Basophils % 0.1, Absolute Granulocytes 4.0, Absolute Lymphocytes 1.6, Absolute Monocytes 0.8 H, Absolute Eosinophils 0.2, Absolute Basophils 0
[2017-08-26 09:27] VITALS: BP 152/70
--- NOTE | 2017-08-26 11:18 | Cons- Cardiology ---
General Information and HPI Consulting Request Date of Consult: 08/26/17 Requested By: Joshua LYNN,Josué Reason for Consult: chest pain, abnormal troponin Source of Information: patient, family Exam Limitations: no limitations History of Present Illness: 81 year old male with h/o CABG 2005, [place]enckebach heart block, diabetes, HTN, dyslipidemia, s/p dual chamber [employer] Advisa pacer comes for follow up. Celestino was hospitalized at [facility] 6 days ago and subsequently transferred to [place] for acute coronary syndrome. He underwent catheterization: 1) Patent tazlina LM 2) [place] LAD is patent proximally with two small diagonal sidebranches with moderate diffuse disease. There is a moderate mid stenosis with distal competitive flow from the TWILA graft 3) Patent tazlina CFX with proximally occluded mid OM. Distal CFX supplies small terminal left PL branch 4) Mid occluded tazlina RCA 5) Patent TWILA to mid LAD 6) Patent SVG to CFX OM with 99% mid stenosis with antegrade JAROD 2 flow 7) Patent SVG to R-PDA with mild to moderate diffuse degenerative changes 8) Successful EMANUEL to CFX SVG with Stephane 3.5x34 mm EMANUEL and distal protection with excellent results. He developed dyspnea after taking Brilinta post PCI and it was changed to clopidogrel for discharge. I saw him in the office yesterday. He c/o constant chest pain for 2 days which he did not tell anybody. His left chest was tender on palpation and ekg showed paced rhythm. He was sent to ER for cardiac enzymes. His troponin was elevated but lower than at [place]. He was observed overnight. His troponin today is lower 1.4. He currently reports no chest pain or dyspnea. He developed mild dyspnea at home yesterday at rest. He has been under increased stress with his sick . Allergies/Medications Allergies: Coded Allergies: No Known Allergies (07/16/16) Home Med List: Aspirin (Aspirin*) 325 MG TABLET 1 TAB PO DAILY HEART (Reported) Atorvastatin Calcium 40 MG TABLET 40 MG PO DAILY CAD (Reported) Cholecalciferol (Vitamin D3) (Vitamin D) 1,000 UNIT TABLET 1 TAB PO BID SUPPLIMENT (Reported) Clopidogrel Bisulfate (Plavix) 75 MG TABLET 75 MG PO DAILY CAD (Reported) Fish Oil/Borage/Flax/Om3,6,9#1 ([place] 3-6-9 1,200 MG Softgel) 1,200 MG CAPSULE 1,000 MG PO D SUPPLIMENMT (Reported) Gabapentin 100 MG CAPSULE 300 MG PO TID NEURO (Reported) Hydralazine HCl 25 MG TABLET 1 TAB PO TID BP (Reported) Lisinopril 10 MG TABLET 10 MG PO D HTN (Reported) Metoprolol Succinate 25 MG TAB 25 MG PO BID HTN (Reported) Multivit-Min/FA/Lycopen/Lutein (Centrum Silver Tablet) 0.4 MG-300 MCG-250 MCG TABLET 1 TAB PO D SUPPLIMENT (Reported) Niacin (Niaspan) 1,000 MG TAB.ER.24H 1,000 MG PO D SUPPLIMENT (Reported) Primidone (Mysoline) 50 MG TABLET 50 MG PO DAILY TREMORS (Reported) Sitagliptin Phos/Metformin HCl (Janumet 50-500 MG Tablet) 50 MG-500 MG TABLET 50-500 MG PO BID DM (Reported) Tamsulosin HCl (Flomax) 0.4 MG CAP.ER.24H 0.4 MG PO D PROSTATE (Reported) Vit C/E/Zn/Coppr/Lutein/Zeaxan (Preservision Areds 2 Softgel) 250-200-40 CAPSULE 1 SGL PO BID SUPPLEMENT (Reported) Review of Systems Review of Systems Constitutional: Denies: no symptoms, see HPI, chills, diaphoresis, fever, malaise, weakness, unexplained weight loss. EENTM: Denies: no symptoms, see HPI, blurred vision, double vision, visual changes, eye pain, eye drainage, eye tearing, icterus, ear discharge, ear pain, ear redness, hearing changes, nasal congestion, epistaxis, nasal pain, throat pain, throat swelling, mouth pain, tooth pain. Cardiovascular: Reports: chest pain. Denies: no symptoms, see HPI, edema, orthopena, palpitations, peripheral edema, syncope. Respiratory: Reports: short of breath. Denies: no symptoms, see HPI, cough, hemoptysis, orthopnea, sputum production, stridor, wheezing. GI: Denies: no symptoms, see HPI, abdominal pain, bloating, constipation, diarrhea, distention, bowel incontinence, melena, nausea, bloody stool, changes in stool, vomiting, steatorrhea. Genitourinary: Denies: no symptoms, see HPI, discharge, dysuria, frequency, hematuria, hesitation, nocturia, pain, urgency. Musculoskeletal: Denies: no symptoms, see HPI, back pain, gout, joint pain, joint swelling, muscle pain, muscle stiffness, neck pain. Skin: Denies: no symptoms, see HPI, cysts, change in skin color, change in hair/nails, dryness, erythema, jaundice, lesions, lymphangitis, lumps, moles, rash. Neurological/Psychological: Denies: no symptoms, see HPI, anxiety, ataxia, cognitive dysfunction, confusion, depressed, dementia, emotional problems, headache, numbness, paresthesia, pre- existing deficit, petit mal seizures, tingling, tremors, tonic-clonic seizures, unable to move lower ext, unable to move upper ext, weakness, other. Hematologic/Endocrine: Denies: no symptoms, see HPI, bruising, bleeding, polyuria, polydipsia, other. Immunologic/Allergic: Denies: no symptoms, see HPI, splenectomy, HIV/AIDS, lymphadenopathy, other. Past History Travel History Traveled to [place] past 21 day No Medical History Blood Transfusion Hx: No Neurological: Parkinson's disease, ESSENTIAL TREMORS EENT: NONE Cardiovascular: CAD, hypertension, myocardial infarction Respiratory: NONE Gastrointestinal: NONE Hepatic: NONE Renal: benign prost hyperplasia Musculoskeletal: NONE Psychiatric: NONE Endocrine: diabetes, Claudio's thyroiditis Blood Disorders: NONE Cancer(s): NONE Surgical History Surgical History: CABG Family History Relations & Conditions If Any: MOTHER Diabetes mellitus (DM) FATHER Diabetes mellitus (DM) FH: [place] (myocardial infarction) Psychosocial History Services at Home: None Primary Language: Nigerian Smoking Status: Former Smoker (10-15 pack years) ETOH Use: occasional use Illicit Drug Use: denies illicit drug use Functional Ability Ambulation: cane, walker Exam & Diagnostic Data Vital Signs and I&O Vital Signs Date Time Temp Pulse Resp B/P B/P Pulse O2 O2 Flow FiO2 Mean Ox Delivery Rate 08/26 926 69 152/70 08/26 0927 69 15208/26 09 69 15208/26 0800 94 Room Air 08/26 0635 97.8 66 20 152/70 94 Room Air 08/25 2349 77 144/80 08/25 2333 97.4 77 22 144/80 96 Room Air 08/25 2233 98.3 78 16 136/71 97 Room Air 08/25 1800 98.0 68 19 125/69 98 Room Air 08/25 1635 70 122/65 08/25 1612 97.2 78 20 160/80 98 Room Air Intake & Output 08/26 1600 08/26 0808/26 0000 08/25 1600 08/25 0800 08/25 0000 Intake Total 200 Output Total 900 1400 Balance -700 -1400 Intake, Oral 200 Number 0 Bowel Movements Output, Urine 900 1400 Patient 204 lb Weight Weight Reported by Patient Measurement Method Physical Exam: HEENT-PERRLA Neck-JVP normal, no carotid bruit Lungs-clear bilaterally Heart-S1S2 regular, no murmur +mild tenderness on left chest palpation Abdomen-soft,not tender, BS+, no organomegaly Extr-no edema, 1+ pulses bilaterally Skin-no rash Diagnostic Data EKG Results SR, V paced CXR Results No acute disease Assessment/Plan Assessment/Plan 81 year old male with CAD, CABG (s/p EMANUEL of SVG-LCX 5 days ago), HTN, HLP, DM, PPM presented with recurrent chest pain, intermittent dyspnea. Troponin elevated-non specific-it can be elevated up to 2 weeks after NSTEMI. CK was normal which is reassuring. Ekg unable to assess due to pacer rhythm. Pacer interrogated yesterday (working fine). CXR normal. At this point it is unclear if his chest pain is due to angina or musculoskeletal. He is hemodynamically stable, he has diffuse disease in other coronary arteries. I doubt acute stent thrombosis(his troponin and CK would be much higher). He takes ASA and clopidogrel daily. He is currently stable, chest pain free and after discussion with patient and his son we decided that he would be discharged home on current therapy. If he develops any recurrent chest pain or dyspnea, he will be brought to [place] and we would do re-look angiogram. Please give NTG s.l prn for discharge. Consult Acknowledgment - Thank you for your consult request.
[2017-08-26] MEDS ORDERED: NITROGLYCERIN0.4 M1 SL ×2 (12:58→13:14)
--- NOTE | 2017-08-26 13:03 | Patient Discharge Instructions ---
Discharge Instructions General Discharge Information You were seen/treated for: Chest pain Special Instructions: Please follow up with your pcp within 1 week of discharge. Please follow up with Dr. Vazquez Please take nitroglycerin for chest pain. Please call Dr. Vazquez's office or go to the ED if pain persists. Diet Continue normal diet: No Recommended Diet: Heart Healthy Activity Full Activity/No Limits: No Activity Self Limited: Yes Acute Coronary Syndrome Inclusion Criteria At DC or during hospital stay patient has or had the following: ACS DIAGNOSIS No Discharge Core Measures Meds if any: Prescribed or Continued at Discharge Meds if any: NOT Prescribed or Continued at Discharge Congestive Heart Failure Inclusion Criteria At DC or during hospital stay patient has or had the following: CHF DIAGNOSIS No Discharge Core Measures Meds if any: Prescribed or Continued at Discharge Meds if any: NOT Prescribed or Continued at Discharge Cerebrovascular accident Inclusion Criteria At DC or during hospital stay patient has or had the following: CVA/TIA Diagnosis No Discharge Core Measures Meds if any: Prescribed or Continued at Discharge Meds if any: NOT Prescribed or Continued at Discharge Venous thromboembolism Inclusion Criteria VTE Diagnosis No VTE Type NONE VTE Confirmed by (Test) NONE Discharge Core Measures - Per Current guidelines, there needs to be overlap - treatment for the first 5 days of Warfarin therapy. - If discharged on Warfarin prior to 5 days of - overlap therapy, the patient will need to be - assessed for post discharge needs including - *Post discharge parental anticoagulation - *Warfarin and/or parental anticoagulation education - *Follow up date to check INR post discharge At least 5 days overlap therapy as Inpatient No Meds if any: Prescribed or Continued at Discharge Note: Overlap Therapy is Warfarin and Anticoagulant Meds if any: NOT Prescribed or Continued at Discharge
== END 2017-08-26 14:05 ==
LOC: ERH 15:46 → ERHI 21:10 → 1NO 21:10 → ENRESERV 21:51 → 1NO 23:22 → ENPENDDIS 08-26 13:14 → ENTRNSPT 08-26 13:42 → EDTRNSPTSTS 08-26 13:46 → EDTRNSPT 08-26 13:46 → 1NO 08-26 14:05 → CMPTRNSPT 08-26 14:12
PROVIDERS: Physician Assistant Medical
DX: R07.9 Chest pain, unspecified (principal); Z87.891 Personal history of nicotine dependence; I25.10 Atherosclerotic heart disease of native coronary artery without angina pectoris; G20 Parkinson's disease; Z87.442 Personal history of urinary calculi; E11.9 Type 2 diabetes mellitus without complications; E06.3 Autoimmune thyroiditis; Z79.82 Long term (current) use of aspirin; R25.1 Tremor, unspecified; Z95.1 Presence of aortocoronary bypass graft; I25.2 Old myocardial infarction; R00.1 Bradycardia, unspecified; Z95.0 Presence of cardiac pacemaker; N40.0 Benign prostatic hyperplasia without lower urinary tract symptoms; Z79.84 Long term (current) use of oral hypoglycemic drugs; I10 Essential (primary) hypertension
CPT/HCPCS: 6020; 36415; 71045; 82436; 93005; 93010; 96372; 99291; G0378; J0131; J1644; J3490